=== PATIENT | female | born 1960 | race African-American/Black ===

== ENCOUNTER 2017-08-23 00:29 | Inpatient (IN) ==
[2017-08-23] MEDS ORDERED: CEFEPIME 2,000 MG in SODIUM CHLORIDE 0.9% 100 ML IV STA (01:01)
[2017-08-23] MEDS ORDERED: VANCOMYCIN INJ 750 MG in SODIUM CHLORIDE 0.9% 250 ML IV STA (01:01)
[2017-08-23] MEDS ORDERED: SODIUM CHLORIDE 0.9% 2,000 ML IV STA (01:01)
[2017-08-23] MEDS ORDERED: VANCOMYCIN INJ 1,000 MG in SODIUM CHLORIDE 0.9% 250 ML IV STA ×2 (01:08→01:09)
[2017-08-23] MEDS ORDERED: CEFEPIME 1,000 MG VIAL ONE (02:12)
[2017-08-23 02:14] LABS: Basophils # 0.2 10*3/uL (0.0-0.2); Basophils % 0.6 % (0.0-0.8); Eosinophils % 0.1 % (0.00-10.9); Hematocrit 28.5 VOL% (35.7-47.0); Immature Granulocytes % 3.8 %; Immature Granulocytes Absolute 1.07 #; Lymphocytes # 2.6 10*3/uL (1.4-4.0); Mean Corpuscular HGB Conc 31.6 GM/DL (32-36); Mean Corpuscular Hemoglobin 28 PG (27-34); Mean Corpuscular Volume 88.5 FL (87-102); Mean Platelet Volume 9.3 FL (9.6-12.0); Monocytes % 10.5 % (1.7-12.7); NRBC # 0.14 10*3/uL; Neutrophils # 21.5 10*3/uL (1.4-7.4); Red Blood Count 3.22 MC/CUMM (3.8-5.5); Red Cell Distribution Width 19.2 % (9.3-17.3); White Blood Count 28.3 T/CUMM (4-12)
[2017-08-23 02:19] LABS: Platelet Count 1023 T/CUMM (130-400)
[2017-08-23 02:24] LABS: Amorphous Crystals,Urine Occasional /HPF (Few); Apearance,Urine CLOUDY (Clear); Bilirubin,Urine Small mg/dL (Negative); Blood, Urine Large mg/dL (Negative); Glucose,Urine (UA) Negative (Negative); Hyaline Casts,Urine 3 /LPF (0-3); Ketones,Urine Negative (Negative); Mucus,Urine Occasional /LPF (Occasional); Nitrite,Urine Negative (Negative); Protein,Urine 100 MG/DL; RBC,Urine 14 /HPF (0-4); Squamous Epithelial Cell,Urine Occasional /HPF (0-10); Urine Color Amber (Yellow); Urine Specific Gravity 1.019 (1.001-1.035); Urine Urobilinogen < 2.0 EU/DL (0.2-1.0); WBC,Urine 14 /HPF (0-6)
[2017-08-23 02:29] LABS: Lactic Acid 1.3 MMOL/L (0.4-2.0)
[2017-08-23 02:30] LABS: Albumin 2.4 G/DL (3.4-5.0); Calcium 8.6 MG/DL (8.5-10.1); Osmolality,Calculated 290.7 MOS/KG (273-304); Potassium 5.9 MMOL/L (3.5-5.1); Total Protein 9.2 G/DL (6.4-8.3)
[2017-08-23 02:42] LABS: Anisocytosis 1+; Band Neutrophils 8 % (0-10); Eosinophils 2 % (0-10); Lymphocytes 4 % (20-55); Metamyelocytes 2 %; Segmented Neutrophils 77 % (50-85); Total Cells Counted 100
[2017-08-23 02:43] LABS: Target Cells Slight
[2017-08-23 02:44] LABS: Poikilocytosis 1+
[2017-08-23] MEDS ORDERED: SODIUM CHLORIDE 0.9% 1,000 ML IV STA (02:46)
[2017-08-23] MEDS ORDERED: ALBUTEROL 2.5 MG/3 ML NEB RESP TX PRN (05:26)
[2017-08-23] MEDS ORDERED: MORPHINE 4 MG/1 ML VIAL IV PRN (05:33)
[2017-08-23] MEDS ORDERED: ACETAMINOPHEN 325 MG TABLET PO PRN (05:33)
[2017-08-23] MEDS ORDERED: DIPHENOXYLATE/ATROPINE 2.5-0.025 MG TABLET PO PRN (05:42)
[2017-08-23] MEDS: PIPERACILLIN/TAZOBACTAM 3,375 MG in SODIUM CHLORIDE 0.9% 100 ML IV SCH ×2 (06:37→17:51)
[2017-08-23] MEDS: SODIUM CHLORIDE 0.9% 1,000 ML IV SCH ×3 (06:39→21:52)
[2017-08-23] MEDS: HEPARIN 5,000 UNIT/1 ML VIAL SUBCUT SCH ×3 (06:39→21:49)
[2017-08-23 06:53] LABS: INR 1.1; PT Patient Result 11.5 SECS
[2017-08-23] MEDS: ALBUTEROL/IPRATROPIUM 3 ML NEB RESP TX SCH ×3 (07:55→19:10)
[2017-08-23] MEDS: ONDANSETRON 4 MG/2 ML VIAL IV PRN (08:19)
[2017-08-23] MEDS ORDERED: metroNIDAZOLE 500 MG TABLET PO SCH (09:00)
[2017-08-23] MEDS: FLUoxetine 10 MG CAPSULE PO SCH (09:28)
[2017-08-23] MEDS: ASPIRIN EC 81 MG TABLET PO SCH (09:28)
[2017-08-23] MEDS: COLLAGENASE OINT 30 GM TUBE TOP SCH ×2 (21:48→22:32)
[2017-08-23] MEDS: MELATONIN 3 MG TABLET PO SCH (21:49)
[2017-08-24] MEDS: ALBUTEROL/IPRATROPIUM 3 ML NEB RESP TX SCH ×4 (00:10→19:31)
[2017-08-24] MEDS: PIPERACILLIN/TAZOBACTAM 3,375 MG in SODIUM CHLORIDE 0.9% 100 ML IV SCH (05:25)
[2017-08-24] MEDS: HEPARIN 5,000 UNIT/1 ML VIAL SUBCUT SCH ×3 (05:27→22:31)
[2017-08-24 07:27] LABS: Basophils # 0.2 10*3/uL (0.0-0.2); Basophils % 0.7 % (0.0-0.8); Eosinophils # 0.2 10*3/uL (0.0-0.87); Eosinophils % 0.6 % (0.00-10.9); Hematocrit 21.6 VOL% (35.7-47.0); Hemoglobin 6.7 GM/DL (12.0-16.0); Immature Granulocytes % 3.5 %; Immature Granulocytes Absolute 0.86 #; Lymphocytes # 2.8 10*3/uL (1.4-4.0); Lymphocytes % 11.4 % (21.3-54.2); Mean Corpuscular Hemoglobin 28 PG (27-34); Mean Platelet Volume 9.3 FL (9.6-12.0); Monocytes # 2.8 10*3/uL (0.11-0.8); Monocytes % 11.4 % (1.7-12.7); Neutrophils % 72.4 % (38.7-73.9); Platelet Count 821 T/CUMM (130-400); Red Cell Distribution Width 19.9 % (9.3-17.3); White Blood Count 24.8 T/CUMM (4-12)
[2017-08-24 07:53] LABS: Eosinophils 1 % (0-10); Giant Platelets Few; Hypochromasia 1+; Lymphocytes 8 % (20-55); Platelet Estimate Increased; Segmented Neutrophils 71 % (50-85); Total Cells Counted 100
[2017-08-24 08:08] LABS: Albumin 1.7 G/DL (3.4-5.0); Bilirubin,Total 0.9 MG/DL (0.2-1.0); Calcium 8.5 MG/DL (8.5-10.1); Osmolality,Calculated 303.7 MOS/KG (273-304); Potassium 4.9 MMOL/L (3.5-5.1); Total Protein 7.4 G/DL (6.4-8.3)
[2017-08-24] MEDS: FLUoxetine 10 MG CAPSULE PO SCH (10:36)
[2017-08-24] MEDS: ASPIRIN EC 81 MG TABLET PO SCH (10:37)
[2017-08-24] MEDS: SODIUM CHLORIDE 0.9% 1,000 ML IV SCH (12:53)
[2017-08-24] MEDS ORDERED: SODIUM CHLORIDE 0.9% 1,000 ML IV PRN (13:17)
[2017-08-24] MEDS: SODIUM HYPOCHLORITE 0.25% IRRIG 473 ML BOTTLE TOP SCH (17:58)
[2017-08-24] MEDS: COLLAGENASE OINT 30 GM TUBE TOP SCH ×2 (17:58→20:35)
[2017-08-24] MEDS: VANCOMYCIN INJ 750 MG in SODIUM CHLORIDE 0.9% 250 ML IV SCH (20:43)
[2017-08-24] MEDS: MELATONIN 3 MG TABLET PO SCH (20:44)
[2017-08-25] MEDS: ALBUTEROL/IPRATROPIUM 3 ML NEB RESP TX SCH ×4 (00:18→19:25)
[2017-08-25] MEDS: SODIUM BICARB INJ 150 MEQ in STERILE WATER INJ 850 ML IV SCH ×3 (01:51→17:17)
[2017-08-25] MEDS: ONDANSETRON 4 MG/2 ML VIAL IV PRN ×4 (02:15→14:50)
[2017-08-25] MEDS: PIPERACILLIN/TAZOBACTAM 3,375 MG in SODIUM CHLORIDE 0.9% 100 ML IV SCH ×2 (03:21→19:30)
[2017-08-25 05:40] LABS: Basophils # 0.2 10*3/uL (0.0-0.2); Basophils % 0.7 % (0.0-0.8); Eosinophils # 0.2 10*3/uL (0.0-0.87); Eosinophils % 0.9 % (0.00-10.9); Hematocrit 29.2 VOL% (35.7-47.0); Hemoglobin 9.6 GM/DL (12.0-16.0); Immature Granulocytes % 2.7 %; Immature Granulocytes Absolute 0.65 #; Lymphocytes # 2.2 10*3/uL (1.4-4.0); Lymphocytes % 9.2 % (21.3-54.2); Mean Corpuscular HGB Conc 32.9 GM/DL (32-36); Mean Corpuscular Hemoglobin 29 PG (27-34); Mean Corpuscular Volume 88.8 FL (87-102); Mean Platelet Volume 9.3 FL (9.6-12.0); Monocytes # 2.5 10*3/uL (0.11-0.8); Monocytes % 10.4 % (1.7-12.7); NRBC # 0.07 10*3/uL; Neutrophils # 18.1 10*3/uL (1.4-7.4); Neutrophils % 76.1 % (38.7-73.9); Platelet Count 724 T/CUMM (130-400); Red Blood Count 3.29 MC/CUMM (3.8-5.5); Red Cell Distribution Width 17.3 % (9.3-17.3); White Blood Count 23.8 T/CUMM (4-12)
[2017-08-25] MEDS: HEPARIN 5,000 UNIT/1 ML VIAL SUBCUT SCH ×3 (05:41→21:33)
[2017-08-25 06:04] LABS: Calcium 8.3 MG/DL (8.5-10.1); Osmolality,Calculated 300.4 MOS/KG (273-304); Potassium 4.6 MMOL/L (3.5-5.1)
[2017-08-25 06:26] LABS: Band Neutrophils 1 % (0-10); Hypochromasia Slight; Lymphocytes 8 % (20-55); Nucleated Red Blood Cells 1 (0-5); Platelet Estimate Increased; Segmented Neutrophils 82 % (50-85); Total Cells Counted 100
[2017-08-25] MEDS ORDERED: GLUCAGON 1 MG VIAL IM PRN (14:30)
[2017-08-25] MEDS ORDERED: DEXTROSE 50% 25 GM/50 ML VIAL IV PRN (14:30)
[2017-08-25] MEDS: COLLAGENASE OINT 30 GM TUBE TOP SCH ×2 (14:30→21:24)
[2017-08-25] MEDS: SODIUM HYPOCHLORITE 0.25% IRRIG 473 ML BOTTLE TOP SCH (14:30)
[2017-08-25] MEDS: FLUoxetine 10 MG CAPSULE PO SCH (14:53)
[2017-08-25] MEDS: ASPIRIN EC 81 MG TABLET PO SCH (14:53)
[2017-08-25] MEDS ORDERED: AMINO ACIDS/DEXT/LYTES 4.25-5% 2,000 ML IV SCH (17:00)
[2017-08-25] MEDS: MULTIVITAMIN INJ 10 ML, TRACE ELEMENTS (5) 1 ML in AMINO ACIDS/DEXT/LYTES 4.25-5% 2,000 ML IV SCH (17:19)
[2017-08-25] MEDS: FAT EMULSION 20% 250 ML IV SCH (17:20)
[2017-08-25] MEDS: MELATONIN 3 MG TABLET PO SCH (21:24)
[2017-08-26] MEDS: ALBUTEROL/IPRATROPIUM 3 ML NEB RESP TX SCH ×4 (00:28→19:43)
[2017-08-26 05:13] LABS: Basophils # 0.2 10*3/uL (0.0-0.2); Basophils % 0.6 % (0.0-0.8); Eosinophils # 0.5 10*3/uL (0.0-0.87); Hematocrit 24.4 VOL% (35.7-47.0); Immature Granulocytes % 2.4 %; Immature Granulocytes Absolute 0.56 #; Lymphocytes # 2.3 10*3/uL (1.4-4.0); Lymphocytes % 9.7 % (21.3-54.2); Mean Corpuscular HGB Conc 32.8 GM/DL (32-36); Mean Corpuscular Hemoglobin 30 PG (27-34); Mean Platelet Volume 9.6 FL (9.6-12.0); Monocytes # 1.9 10*3/uL (0.11-0.8); Monocytes % 8.3 % (1.7-12.7); NRBC # 0.07 10*3/uL; Neutrophils # 17.9 10*3/uL (1.4-7.4); Platelet Count 627 T/CUMM (130-400); Red Blood Count 2.68 MC/CUMM (3.8-5.5); Red Cell Distribution Width 17.8 % (9.3-17.3); White Blood Count 23.3 T/CUMM (4-12)
[2017-08-26] MEDS: PIPERACILLIN/TAZOBACTAM 3,375 MG in SODIUM CHLORIDE 0.9% 100 ML IV SCH ×2 (05:17→17:15)
[2017-08-26] MEDS: HEPARIN 5,000 UNIT/1 ML VIAL SUBCUT SCH ×3 (05:17→22:40)
[2017-08-26 05:32] LABS: Osmolality,Calculated 299.8 MOS/KG (273-304)
[2017-08-26 05:49] LABS: Potassium 6.6 MMOL/L (3.5-5.1)
[2017-08-26 06:06] LABS: Prealbumin 23.1 MG/DL (20-40)
[2017-08-26] MEDS: SODIUM BICARB INJ 150 MEQ in STERILE WATER INJ 850 ML IV SCH ×2 (06:42→06:43)
[2017-08-26 06:57] LABS: Eosinophils 1 % (0-10); Hypochromasia 2+; Lymphocytes 8 % (20-55); Microcytosis 2+; Nucleated Red Blood Cells 1 (0-5); Platelet Estimate Increased; Segmented Neutrophils 87 % (50-85); Total Cells Counted 100
[2017-08-26] MEDS: SODIUM HYPOCHLORITE 0.25% IRRIG 473 ML BOTTLE TOP SCH (09:32)
[2017-08-26] MEDS: ASPIRIN EC 81 MG TABLET PO SCH (09:32)
[2017-08-26] MEDS: FLUoxetine 10 MG CAPSULE PO SCH (09:32)
[2017-08-26] MEDS: COLLAGENASE OINT 30 GM TUBE TOP SCH ×2 (09:32→22:01)
[2017-08-26] MEDS: MULTIVITAMIN INJ 10 ML, TRACE ELEMENTS (5) 1 ML in AMINO ACIDS/DEXT/LYTES 4.25-5% 2,000 ML IV SCH (14:33)
[2017-08-26] MEDS: FAT EMULSION 20% 250 ML IV SCH (16:03)
[2017-08-26] MEDS: INSULIN LISPRO 100 UNIT/ML SUBCUT SCH (17:16)
[2017-08-26] MEDS: ONDANSETRON 4 MG/2 ML VIAL IV PRN (20:23)
[2017-08-26] MEDS: PROMETHAZINE 25 MG/1 ML VIAL IM PRN (21:39)
[2017-08-26] MEDS: MELATONIN 3 MG TABLET PO SCH (22:37)
[2017-08-26] MEDS: VANCOMYCIN INJ 750 MG in SODIUM CHLORIDE 0.9% 250 ML IV SCH (22:53)
[2017-08-27] MEDS: ALBUTEROL/IPRATROPIUM 3 ML NEB RESP TX SCH ×4 (02:30→19:39)
[2017-08-27] MEDS: PIPERACILLIN/TAZOBACTAM 3,375 MG in SODIUM CHLORIDE 0.9% 100 ML IV SCH ×2 (03:18→17:26)
[2017-08-27 04:42] LABS: Basophils # 0.1 10*3/uL (0.0-0.2); Basophils % 0.4 % (0.0-0.8); Eosinophils # 0.6 10*3/uL (0.0-0.87); Eosinophils % 2.3 % (0.00-10.9); Hemoglobin 8.4 GM/DL (12.0-16.0); Immature Granulocytes % 2.9 %; Immature Granulocytes Absolute 0.76 #; Lymphocytes # 2.7 10*3/uL (1.4-4.0); Lymphocytes % 10.3 % (21.3-54.2); Mean Corpuscular HGB Conc 32.3 GM/DL (32-36); Mean Corpuscular Hemoglobin 29 PG (27-34); Mean Corpuscular Volume 89.3 FL (87-102); Mean Platelet Volume 9.2 FL (9.6-12.0); Monocytes # 2.1 10*3/uL (0.11-0.8); Monocytes % 7.9 % (1.7-12.7); NRBC # 0.07 10*3/uL; Neutrophils # 19.8 10*3/uL (1.4-7.4); Neutrophils % 76.2 % (38.7-73.9); Platelet Count 675 T/CUMM (130-400); Red Blood Count 2.91 MC/CUMM (3.8-5.5); Red Cell Distribution Width 17.2 % (9.3-17.3)
[2017-08-27 05:10] LABS: Eosinophils 1 % (0-10); Giant Platelets Few; Hypochromasia 1+; Lymphocytes 4 % (20-55); Microcytosis 1+; Ovalocytes Slight; Platelet Estimate Increased; Segmented Neutrophils 81 % (50-85); Total Cells Counted 100
[2017-08-27] MEDS: HEPARIN 5,000 UNIT/1 ML VIAL SUBCUT SCH ×3 (05:15→21:07)
[2017-08-27 05:16] LABS: Calcium 8.8 MG/DL (8.5-10.1); Potassium 4.8 MMOL/L (3.5-5.1)
[2017-08-27] MEDS: INSULIN LISPRO 100 UNIT/ML SUBCUT SCH ×2 (08:46→16:54)
[2017-08-27] MEDS: ASPIRIN EC 81 MG TABLET PO SCH (09:33)
[2017-08-27] MEDS: SODIUM HYPOCHLORITE 0.25% IRRIG 473 ML BOTTLE TOP SCH (09:33)
[2017-08-27] MEDS: FLUoxetine 10 MG CAPSULE PO SCH (09:33)
[2017-08-27] MEDS: COLLAGENASE OINT 30 GM TUBE TOP SCH ×2 (09:34→21:54)
[2017-08-27] MEDS: MULTIVITAMIN INJ 10 ML, TRACE ELEMENTS (5) 1 ML in AMINO ACIDS/DEXT/LYTES 4.25-5% 2,000 ML IV SCH (11:23)
[2017-08-27] MEDS: ONDANSETRON 4 MG/2 ML VIAL IV PRN (14:08)
[2017-08-27] MEDS: FAT EMULSION 20% 250 ML IV SCH (14:08)
[2017-08-27] MEDS: MELATONIN 3 MG TABLET PO SCH (21:07)
[2017-08-28] MEDS: ALBUTEROL/IPRATROPIUM 3 ML NEB RESP TX SCH ×4 (00:54→19:12)
[2017-08-28 04:58] LABS: Basophils # 0.1 10*3/uL (0.0-0.2); Basophils % 0.4 % (0.0-0.8); Eosinophils # 0.6 10*3/uL (0.0-0.87); Eosinophils % 2.8 % (0.00-10.9); Hematocrit 24.9 VOL% (35.7-47.0); Hemoglobin 8.3 GM/DL (12.0-16.0); Immature Granulocytes % 2.5 %; Immature Granulocytes Absolute 0.56 #; Lymphocytes # 2.5 10*3/uL (1.4-4.0); Lymphocytes % 11.1 % (21.3-54.2); Mean Corpuscular HGB Conc 33.3 GM/DL (32-36); Mean Corpuscular Hemoglobin 29 PG (27-34); Mean Corpuscular Volume 87.7 FL (87-102); Mean Platelet Volume 9.2 FL (9.6-12.0); Monocytes # 1.8 10*3/uL (0.11-0.8); NRBC # 0.02 10*3/uL; Neutrophils # 17.1 10*3/uL (1.4-7.4); Neutrophils % 75.2 % (38.7-73.9); Platelet Count 641 T/CUMM (130-400); Red Blood Count 2.84 MC/CUMM (3.8-5.5); Red Cell Distribution Width 17.3 % (9.3-17.3); White Blood Count 22.7 T/CUMM (4-12)
[2017-08-28] MEDS: HEPARIN 5,000 UNIT/1 ML VIAL SUBCUT SCH ×3 (05:00→21:12)
[2017-08-28] MEDS: PIPERACILLIN/TAZOBACTAM 3,375 MG in SODIUM CHLORIDE 0.9% 100 ML IV SCH ×3 (05:00→23:05)
[2017-08-28 05:36] LABS: Calcium 8.6 MG/DL (8.5-10.1); Osmolality,Calculated 289.1 MOS/KG (273-304)
[2017-08-28 05:51] LABS: Eosinophils 2 % (0-10); Lymphocytes 10 % (20-55); Platelet Estimate Increased; Segmented Neutrophils 79 % (50-85); Total Cells Counted 100
[2017-08-28 05:52] LABS: Hypochromasia 1+; Microcytosis Slight
[2017-08-28] MEDS: MULTIVITAMIN INJ 10 ML, TRACE ELEMENTS (5) 1 ML in AMINO ACIDS/DEXT/LYTES 4.25-5% 2,000 ML IV SCH (08:23)
[2017-08-28] MEDS: INSULIN LISPRO 100 UNIT/ML SUBCUT SCH ×2 (08:57→17:06)
[2017-08-28] MEDS: FLUoxetine 10 MG CAPSULE PO SCH (08:59)
[2017-08-28] MEDS: ASPIRIN EC 81 MG TABLET PO SCH (09:00)
[2017-08-28] MEDS: SODIUM HYPOCHLORITE 0.25% IRRIG 473 ML BOTTLE TOP SCH (09:00)
[2017-08-28] MEDS: COLLAGENASE OINT 30 GM TUBE TOP SCH ×2 (09:00→21:12)
[2017-08-28] MEDS: FAT EMULSION 20% 250 ML IV SCH (14:01)
[2017-08-28] MEDS: ONDANSETRON 4 MG/2 ML VIAL IV PRN (17:44)
[2017-08-28] MEDS: VANCOMYCIN INJ 750 MG in SODIUM CHLORIDE 0.9% 250 ML IV SCH (21:03)
[2017-08-28] MEDS: MELATONIN 3 MG TABLET PO SCH (21:12)
[2017-08-29] MEDS: ALBUTEROL/IPRATROPIUM 3 ML NEB RESP TX SCH ×2 (00:57→07:00)
[2017-08-29] MEDS: ONDANSETRON 4 MG/2 ML VIAL IV PRN ×2 (03:00→14:39)
[2017-08-29] MEDS: MULTIVITAMIN INJ 10 ML, TRACE ELEMENTS (5) 1 ML in AMINO ACIDS/DEXT/LYTES 4.25-5% 2,000 ML IV SCH ×2 (03:20→23:41)
[2017-08-29] MEDS: HEPARIN 5,000 UNIT/1 ML VIAL SUBCUT SCH ×3 (05:55→22:34)
[2017-08-29] MEDS: PIPERACILLIN/TAZOBACTAM 3,375 MG in SODIUM CHLORIDE 0.9% 100 ML IV SCH ×2 (05:55→14:40)
[2017-08-29 06:01] LABS: Osmolality,Calculated 284.2 MOS/KG (273-304); Prealbumin 33.5 MG/DL (20-40)
[2017-08-29] MEDS: FLUoxetine 10 MG CAPSULE PO SCH (10:02)
[2017-08-29] MEDS: INSULIN LISPRO 100 UNIT/ML SUBCUT SCH ×2 (10:03→18:49)
[2017-08-29] MEDS: ASPIRIN EC 81 MG TABLET PO SCH (10:03)
[2017-08-29] MEDS: FAT EMULSION 20% 250 ML IV SCH (14:40)
[2017-08-29] MEDS: SODIUM HYPOCHLORITE 0.25% IRRIG 473 ML BOTTLE TOP SCH (14:50)
[2017-08-29] MEDS: COLLAGENASE OINT 30 GM TUBE TOP SCH ×2 (14:50→20:33)
[2017-08-29] MEDS: MELATONIN 3 MG TABLET PO SCH (21:42)
[2017-08-30] MEDS: ONDANSETRON 4 MG/2 ML VIAL IV PRN ×2 (00:03→21:36)
[2017-08-30] MEDS: PIPERACILLIN/TAZOBACTAM 3,375 MG in SODIUM CHLORIDE 0.9% 100 ML IV SCH ×2 (00:10→06:10)
[2017-08-30] MEDS: HEPARIN 5,000 UNIT/1 ML VIAL SUBCUT SCH ×3 (06:10→21:36)
[2017-08-30] MEDS ORDERED: MIDAZOLAM 2 MG/2 ML VIAL ONE (09:36)
[2017-08-30] MEDS ORDERED: PROPOFOL 200 MG/20 ML VIAL IV ONE (09:36)
[2017-08-30] MEDS ORDERED: fentaNYL 100 MCG/2 ML VIAL ONE (09:36)
[2017-08-30] MEDS ORDERED: GLYCOPYRROLATE 0.4 MG/2 ML VIAL ONE (09:36)
[2017-08-30] MEDS ORDERED: ONDANSETRON 4 MG/2 ML VIAL ONE (09:36)
[2017-08-30] MEDS ORDERED: SEVOFLURANE 1 UNIT/15 MINUTE INH ONE (09:36)
[2017-08-30] MEDS ORDERED: NEOSTIGMINE 10 MG/10 ML VIAL ONE (09:37)
[2017-08-30] MEDS ORDERED: ROCURONIUM 100 MG/10 ML VIAL IV ONE (09:37)
[2017-08-30] MEDS ORDERED: PHENYLEPHRINE 1 MG/10 ML SYRINGE IV ONE (09:37)
[2017-08-30] MEDS: INSULIN LISPRO 100 UNIT/ML SUBCUT SCH ×2 (09:39→18:37)
[2017-08-30] MEDS: FLUoxetine 10 MG CAPSULE PO SCH (09:40)
[2017-08-30] MEDS: SODIUM HYPOCHLORITE 0.25% IRRIG 473 ML BOTTLE TOP SCH (09:40)
[2017-08-30] MEDS: ASPIRIN EC 81 MG TABLET PO SCH (09:40)
[2017-08-30] MEDS: COLLAGENASE OINT 30 GM TUBE TOP SCH ×2 (09:40→21:34)
[2017-08-30] MEDS: FAT EMULSION 20% 250 ML IV SCH (14:55)
[2017-08-30] MEDS: MULTIVITAMIN INJ 10 ML, TRACE ELEMENTS (5) 1 ML in AMINO ACIDS/DEXT/LYTES 4.25-5% 2,000 ML IV SCH (18:37)
[2017-08-30] MEDS: LEVOFLOXACIN 750 MG TABLET PO SCH (18:38)
[2017-08-30] MEDS ORDERED: VANCOMYCIN INJ 750 MG in SODIUM CHLORIDE 0.9% 250 ML IV SCH (21:00)
[2017-08-30] MEDS: MELATONIN 3 MG TABLET PO SCH (21:36)
[2017-08-31] MEDS: HEPARIN 5,000 UNIT/1 ML VIAL SUBCUT SCH ×3 (06:10→22:09)
[2017-08-31] MEDS: PROMETHAZINE 25 MG/1 ML VIAL IM PRN (06:17)
[2017-08-31] MEDS: INSULIN LISPRO 100 UNIT/ML SUBCUT SCH ×2 (08:58→16:04)
[2017-08-31] MEDS: ASPIRIN EC 81 MG TABLET PO SCH (09:59)
[2017-08-31] MEDS: FLUoxetine 10 MG CAPSULE PO SCH (09:59)
[2017-08-31] MEDS: ATENOLOL/CHLORTHALIDONE 50-25 MG TABLET PO SCH (13:58)
[2017-08-31] MEDS: ONDANSETRON 4 MG/2 ML VIAL IV PRN (13:59)
[2017-08-31] MEDS: FAT EMULSION 20% 250 ML IV SCH (14:12)
[2017-08-31] MEDS: MULTIVITAMIN INJ 10 ML, TRACE ELEMENTS (5) 1 ML in AMINO ACIDS/DEXT/LYTES 4.25-5% 2,000 ML IV SCH (14:13)
[2017-08-31] MEDS: LEVOFLOXACIN 750 MG TABLET PO SCH (16:11)
[2017-08-31] MEDS: COLLAGENASE OINT 30 GM TUBE TOP SCH ×2 (18:01→20:10)
[2017-08-31] MEDS: SODIUM HYPOCHLORITE 0.25% IRRIG 473 ML BOTTLE TOP SCH (18:01)
[2017-08-31] MEDS: MELATONIN 3 MG TABLET PO SCH (20:09)
[2017-09-01] MEDS: HEPARIN 5,000 UNIT/1 ML VIAL SUBCUT SCH ×3 (06:34→21:57)
[2017-09-01 06:41] LABS: Calcium 9.2 MG/DL (8.5-10.1); Osmolality,Calculated 276.4 MOS/KG (273-304); Potassium 5.5 MMOL/L (3.5-5.1)
[2017-09-01] MEDS: INSULIN LISPRO 100 UNIT/ML SUBCUT SCH ×2 (08:28→17:10)
[2017-09-01] MEDS: ATENOLOL/CHLORTHALIDONE 50-25 MG TABLET PO SCH (09:45)
[2017-09-01] MEDS: FLUoxetine 10 MG CAPSULE PO SCH (09:45)
[2017-09-01] MEDS: ASPIRIN EC 81 MG TABLET PO SCH (09:45)
[2017-09-01] MEDS ORDERED: AMINO ACIDS IV SCH ×2 (11:00→17:00)
[2017-09-01] MEDS ORDERED: MULTIVITAMIN IV SCH ×2 (11:00→17:00)
[2017-09-01] MEDS ORDERED: TRACE ELEMENTS IV SCH ×2 (11:00→17:00)
[2017-09-01] MEDS ORDERED: [UNRECOGNIZED DRUG - OTHER] IV SCH ×2 (11:00→17:00)
[2017-09-01] MEDS: MULTIVITAMIN INJ 10 ML, TRACE ELEMENTS (5) 1 ML in AMINO ACIDS/DEXT/LYTES 4.25-5% 2,000 ML IV SCH (11:10)
[2017-09-01] MEDS: COLLAGENASE OINT 30 GM TUBE TOP SCH ×2 (12:10→21:34)
[2017-09-01] MEDS: SODIUM HYPOCHLORITE 0.25% IRRIG 473 ML BOTTLE TOP SCH (12:10)
[2017-09-01] MEDS: PROMETHAZINE 25 MG TABLET PO PRN (16:19)
[2017-09-01] MEDS: amLODIPine 10 MG TABLET PO SCH (16:20)
[2017-09-01] MEDS: LEVOFLOXACIN 750 MG TABLET PO SCH (16:20)
[2017-09-01] MEDS: MELATONIN 3 MG TABLET PO SCH (21:55)
[2017-09-02] MEDS: HEPARIN 5,000 UNIT/1 ML VIAL SUBCUT SCH ×3 (06:38→21:16)
[2017-09-02 07:06] LABS: Calcium 9.3 MG/DL (8.5-10.1); Osmolality,Calculated 275.5 MOS/KG (273-304); Potassium 4.9 MMOL/L (3.5-5.1)
[2017-09-02] MEDS: INSULIN LISPRO 100 UNIT/ML SUBCUT SCH ×2 (10:32→18:03)
[2017-09-02] MEDS: ATENOLOL/CHLORTHALIDONE 50-25 MG TABLET PO SCH (11:08)
[2017-09-02] MEDS: FLUoxetine 10 MG CAPSULE PO SCH (11:08)
[2017-09-02] MEDS: ASPIRIN EC 81 MG TABLET PO SCH (11:09)
[2017-09-02] MEDS: amLODIPine 10 MG TABLET PO SCH (11:10)
[2017-09-02] MEDS: ONDANSETRON 4 MG/2 ML VIAL IV PRN ×2 (12:32→21:13)
[2017-09-02] MEDS: SODIUM HYPOCHLORITE 0.25% IRRIG 473 ML BOTTLE TOP SCH (14:15)
[2017-09-02] MEDS: COLLAGENASE OINT 30 GM TUBE TOP SCH ×2 (14:15→21:16)
[2017-09-02] MEDS: SODIUM CHLORIDE 0.9% 1,000 ML IV SCH (18:02)
[2017-09-02] MEDS: MELATONIN 3 MG TABLET PO SCH (21:13)
[2017-09-03 01:07] LABS: Apearance,Urine CLOUDY (Clear); Bilirubin,Urine Negative (Negative); Blood, Urine Large mg/dL (Negative); Glucose,Urine (UA) Negative (Negative); Granular Casts,Urine 45 /LPF (0-1); Ketones,Urine Negative (Negative); Nitrite,Urine Negative (Negative); Protein,Urine 100 MG/DL; RBC,Urine 733 /HPF (0-4); Squamous Epithelial Cell,Urine Occasional /HPF (0-10); Urine Color Amber (Yellow); Urine Specific Gravity 1.012 (1.001-1.035); Urine Urobilinogen < 2.0 EU/DL (0.2-1.0); WBC,Urine 260 /HPF (0-6)
[2017-09-03] MEDS: SODIUM CHLORIDE 0.9% 1,000 ML IV SCH ×4 (04:52→20:15)
[2017-09-03] MEDS: HEPARIN 5,000 UNIT/1 ML VIAL SUBCUT SCH ×3 (06:18→21:53)
[2017-09-03 07:16] LABS: Basophils # 0.2 10*3/uL (0.0-0.2); Eosinophils # 0.3 10*3/uL (0.0-0.87); Eosinophils % 1.6 % (0.00-10.9); Hematocrit 26.1 VOL% (35.7-47.0); Hemoglobin 8.2 GM/DL (12.0-16.0); Immature Granulocytes % 1.1 %; Immature Granulocytes Absolute 0.17 #; Lymphocytes % 12.9 % (21.3-54.2); Mean Corpuscular HGB Conc 31.4 GM/DL (32-36); Mean Corpuscular Hemoglobin 29 PG (27-34); Mean Corpuscular Volume 92.6 FL (87-102); Mean Platelet Volume 8.9 FL (9.6-12.0); Monocytes # 1.2 10*3/uL (0.11-0.8); Monocytes % 7.7 % (1.7-12.7); NRBC # 0.02 10*3/uL; Neutrophils % 75.7 % (38.7-73.9); Platelet Count 696 T/CUMM (130-400); Red Blood Count 2.82 MC/CUMM (3.8-5.5); Red Cell Distribution Width 17.1 % (9.3-17.3); White Blood Count 15.8 T/CUMM (4-12)
[2017-09-03 07:31] LABS: Calcium 9.1 MG/DL (8.5-10.1); Osmolality,Calculated 281.5 MOS/KG (273-304); Potassium 4.9 MMOL/L (3.5-5.1)
[2017-09-03] MEDS: INSULIN LISPRO 100 UNIT/ML SUBCUT SCH ×2 (08:55→17:17)
[2017-09-03] MEDS ORDERED: LEVOFLOXACIN 750 MG TABLET PO SCH (09:00)
[2017-09-03] MEDS: ATENOLOL/CHLORTHALIDONE 50-25 MG TABLET PO SCH (09:50)
[2017-09-03] MEDS: FLUoxetine 10 MG CAPSULE PO SCH (09:50)
[2017-09-03] MEDS: amLODIPine 10 MG TABLET PO SCH (09:50)
[2017-09-03] MEDS: ASPIRIN EC 81 MG TABLET PO SCH (09:50)
[2017-09-03] MEDS: SODIUM HYPOCHLORITE 0.25% IRRIG 473 ML BOTTLE TOP SCH (12:00)
[2017-09-03] MEDS: COLLAGENASE OINT 30 GM TUBE TOP SCH ×2 (12:00→22:13)
[2017-09-03] MEDS: MELATONIN 3 MG TABLET PO SCH (21:53)
[2017-09-04] MEDS: HEPARIN 5,000 UNIT/1 ML VIAL SUBCUT SCH ×3 (06:30→21:25)
[2017-09-04] MEDS: SODIUM CHLORIDE 0.9% 1,000 ML IV SCH ×3 (06:34→22:00)
[2017-09-04] MEDS: ASPIRIN EC 81 MG TABLET PO SCH (09:29)
[2017-09-04] MEDS: FLUoxetine 10 MG CAPSULE PO SCH (09:30)
[2017-09-04] MEDS: amLODIPine 10 MG TABLET PO SCH (09:30)
[2017-09-04] MEDS: ATENOLOL/CHLORTHALIDONE 50-25 MG TABLET PO SCH (09:30)
[2017-09-04] MEDS: INSULIN LISPRO 100 UNIT/ML SUBCUT SCH ×2 (09:34→16:23)
[2017-09-04] MEDS: SODIUM HYPOCHLORITE 0.25% IRRIG 473 ML BOTTLE TOP SCH (17:20)
[2017-09-04] MEDS: COLLAGENASE OINT 30 GM TUBE TOP SCH ×2 (17:20→21:26)
[2017-09-04] MEDS: MELATONIN 3 MG TABLET PO SCH (21:22)
[2017-09-04] MEDS: ONDANSETRON 4 MG/2 ML VIAL IV PRN (21:23)
[2017-09-05] MEDS: HEPARIN 5,000 UNIT/1 ML VIAL SUBCUT SCH ×3 (05:20→22:01)
[2017-09-05] MEDS: INSULIN LISPRO 100 UNIT/ML SUBCUT SCH ×2 (08:34→16:31)
[2017-09-05] MEDS: ATENOLOL/CHLORTHALIDONE 50-25 MG TABLET PO SCH (09:44)
[2017-09-05] MEDS: FLUoxetine 10 MG CAPSULE PO SCH (09:44)
[2017-09-05] MEDS: amLODIPine 10 MG TABLET PO SCH (09:44)
[2017-09-05] MEDS: ASPIRIN EC 81 MG TABLET PO SCH (09:44)
[2017-09-05] MEDS: SODIUM HYPOCHLORITE 0.25% IRRIG 473 ML BOTTLE TOP SCH (11:07)
[2017-09-05] MEDS: COLLAGENASE OINT 30 GM TUBE TOP SCH ×2 (11:39→22:01)
[2017-09-05] MEDS: SODIUM CHLORIDE 0.9% 1,000 ML IV SCH (11:40)
[2017-09-05] MEDS: FLUCONAZOLE INJ 200 MG in PREMIX 1 EACH IV SCH (13:13)
[2017-09-05] MEDS: MELATONIN 3 MG TABLET PO SCH (22:00)
[2017-09-06] MEDS: SODIUM CHLORIDE 0.9% 1,000 ML IV SCH ×2 (04:50→15:30)
[2017-09-06 05:25] LABS: Basophils # 0.1 10*3/uL (0.0-0.2); Basophils % 1.2 % (0.0-0.8); Eosinophils # 0.4 10*3/uL (0.0-0.87); Eosinophils % 3.8 % (0.00-10.9); Hematocrit 23.4 VOL% (35.7-47.0); Hemoglobin 7.3 GM/DL (12.0-16.0); Immature Granulocytes % 0.5 %; Immature Granulocytes Absolute 0.06 #; Lymphocytes # 2.1 10*3/uL (1.4-4.0); Lymphocytes % 17.7 % (21.3-54.2); Mean Corpuscular HGB Conc 31.2 GM/DL (32-36); Mean Corpuscular Hemoglobin 29 PG (27-34); Mean Platelet Volume 8.6 FL (9.6-12.0); Monocytes # 1.1 10*3/uL (0.11-0.8); Monocytes % 9.1 % (1.7-12.7); Neutrophils # 7.9 10*3/uL (1.4-7.4); Neutrophils % 67.7 % (38.7-73.9); Platelet Count 596 T/CUMM (130-400); Red Blood Count 2.49 MC/CUMM (3.8-5.5); White Blood Count 11.6 T/CUMM (4-12)
[2017-09-06 05:53] LABS: Albumin 1.9 G/DL (3.4-5.0); Bilirubin,Total 0.4 MG/DL (0.2-1.0); Calcium 8.7 MG/DL (8.5-10.1); Osmolality,Calculated 284.5 MOS/KG (273-304); Total Protein 7.6 G/DL (6.4-8.3)
[2017-09-06] MEDS: HEPARIN 5,000 UNIT/1 ML VIAL SUBCUT SCH ×2 (06:08→15:30)
[2017-09-06] MEDS: INSULIN LISPRO 100 UNIT/ML SUBCUT SCH ×2 (07:54→16:59)
[2017-09-06] MEDS: amLODIPine 10 MG TABLET PO SCH (08:54)
[2017-09-06] MEDS: ATENOLOL/CHLORTHALIDONE 50-25 MG TABLET PO SCH (08:54)
[2017-09-06] MEDS: FLUoxetine 10 MG CAPSULE PO SCH (08:54)
[2017-09-06] MEDS: ASPIRIN EC 81 MG TABLET PO SCH (08:54)
[2017-09-06] MEDS: FLUCONAZOLE INJ 200 MG in PREMIX 1 EACH IV SCH (15:30)
[2017-09-06] MEDS ORDERED: LORazepam 2 MG/1 ML VIAL IV PRN (16:34)
[2017-09-06] MEDS ORDERED: SCOPOLAMINE 1.5 MG PATCH TRANSDERM SCH (17:00)
[2017-09-06] MEDS: METOCLOPRAMIDE 10 MG/2 ML VIAL IV SCH (17:26)
[2017-09-06] MEDS: SODIUM HYPOCHLORITE 0.25% IRRIG 473 ML BOTTLE TOP SCH (18:20)
[2017-09-06] MEDS: COLLAGENASE OINT 30 GM TUBE TOP SCH (19:34)
[2017-09-06] MEDS ORDERED: ENOXAPARIN 40 MG/0.4 ML SYRINGE SUBCUT SCH (21:00)
[2017-09-07] MEDS: METOCLOPRAMIDE 10 MG/2 ML VIAL IV SCH ×3 (01:46→11:20)
[2017-09-07] MEDS: COLLAGENASE OINT 30 GM TUBE TOP SCH ×2 (05:00→10:30)
[2017-09-07] MEDS: INSULIN LISPRO 100 UNIT/ML SUBCUT SCH (08:42)
[2017-09-07] MEDS ORDERED: ATENOLOL 50 MG TABLET PO SCH (09:00)
[2017-09-07] MEDS ORDERED: SERTRALINE 25 MG TABLET PO SCH (09:00)
[2017-09-07] MEDS ORDERED: TUBERCULIN SKIN TEST 0.1 ML SYRINGE INTRADERM ONE (09:21)
[2017-09-07 09:40] LABS: Hematocrit 25.2 VOL% (35.7-47.0); Hemoglobin 8.2 GM/DL (12.0-16.0)
[2017-09-07] MEDS: ASPIRIN EC 81 MG TABLET PO SCH (10:22)
[2017-09-07] MEDS: amLODIPine 10 MG TABLET PO SCH (10:22)
[2017-09-07] MEDS: SODIUM HYPOCHLORITE 0.25% IRRIG 473 ML BOTTLE TOP SCH (10:30)
[2017-09-07 11:03] VITALS: BP 124/67
[2017-09-07] MEDS: PROMETHAZINE 25 MG TABLET PO PRN (13:10)
[2017-09-07] MEDS: FLUCONAZOLE INJ 200 MG in PREMIX 1 EACH IV SCH (13:14)
== END 2017-09-07 16:00 | DRG 853 ==
LOC: EDUNIT# → EDBD → N.ED 00:29 → SUATTDRO 04:46 → N.EDINP 04:46 → N.CC 10:21 → N.3E 12:02
PROVIDERS: ADMIT Internal Medicine; ATTEND Internal Medicine

== ENCOUNTER 2017-09-10 05:45 | Inpatient (IN) ==
[2017-09-10] MEDS ORDERED: SODIUM CHLORIDE 0.9% 1,000 ML IV STA (06:22)
[2017-09-10] MEDS ORDERED: ONDANSETRON 4 MG/2 ML VIAL IV STA (06:23)
[2017-09-10 06:51] LABS: Basophils # 0.1 10*3/uL (0.0-0.2); Basophils % 0.6 % (0.0-0.8); Eosinophils # 0.1 10*3/uL (0.0-0.87); Eosinophils % 0.8 % (0.00-10.9); Hematocrit 30.8 VOL% (35.7-47.0); Hemoglobin 9.7 GM/DL (12.0-16.0); Immature Granulocytes % 0.7 %; Immature Granulocytes Absolute 0.09 #; Lymphocytes # 1.6 10*3/uL (1.4-4.0); Lymphocytes % 12.4 % (21.3-54.2); Mean Corpuscular HGB Conc 31.5 GM/DL (32-36); Mean Corpuscular Hemoglobin 30 PG (27-34); Mean Corpuscular Volume 94.2 FL (87-102); Mean Platelet Volume 8.7 FL (9.6-12.0); Monocytes # 0.6 10*3/uL (0.11-0.8); Monocytes % 4.9 % (1.7-12.7); NRBC # 0.04 10*3/uL; Neutrophils # 10.5 10*3/uL (1.4-7.4); Neutrophils % 80.6 % (38.7-73.9); Platelet Count 645 T/CUMM (130-400); Red Blood Count 3.27 MC/CUMM (3.8-5.5); Red Cell Distribution Width 16.7 % (9.3-17.3)
[2017-09-10 07:07] LABS: Alanine Aminotransferase 75 U/L (13-56); Albumin 2.9 G/DL (3.4-5.0); Alkaline Phosphatase 304 U/L (45-117); Amylase 190 U/L (25-115); Aspartate Amino Transferase 50 U/L (0-37); Bilirubin,Total < 0.39 MG/DL (0.2-1.0); Blood Urea Nitrogen 86 MG/DL (7-18); Calcium 10.3 MG/DL (8.5-10.1); Glucose 117 MG/DL (74-106); Osmolality,Calculated 286.8 MOS/KG (273-304); Potassium 5.7 MMOL/L (3.5-5.1); Sodium 130 MMOL/L (136-145); Total Protein 10.7 G/DL (6.4-8.3)
[2017-09-10 08:32] LABS: Apearance,Urine TURBID (Clear); Glucose,Urine (UA) 50 mg/dL (Negative); Ketones,Urine Negative (Negative); Nitrite,Urine Negative (Negative); Protein,Urine >=500 MG/DL; Urine Color Brown (Yellow); Urine Specific Gravity 1.015 (1.001-1.035)
[2017-09-10 08:33] LABS: Bilirubin,Urine Negative (Negative); Blood, Urine 1+ mg/dL (Negative); Urine Urobilinogen 0.2 EU/DL (0.2-1.0)
[2017-09-10 08:37] LABS: Bacteria,Urine Few /HPF (Few); RBC,Urine TNTC /HPF (0-4); Squamous Epithelial Cell,Urine Rare /HPF (0-10)
[2017-09-10] MEDS ORDERED: ACETAMINOPHEN 325 MG TABLET PO PRN ×2 (10:26→17:41)
[2017-09-10] MEDS ORDERED: SODIUM CHLORIDE 0.9% 1,000 ML IV SCH (10:30)
[2017-09-10] MEDS: MEROPENEM 500 MG in SYRINGE 1 EACH IV SCH (12:37)
[2017-09-10] MEDS: SODIUM BICARB INJ 150 MEQ in DEXTROSE 5% 850 ML IV SCH ×2 (17:10→23:55)
[2017-09-10] MEDS ORDERED: LORazepam 0.5 MG TABLET PO PRN (17:41)
[2017-09-10] MEDS: PROMETHAZINE 25 MG TABLET PO SCH ×2 (19:45→23:39)
[2017-09-10] MEDS: COLLAGENASE OINT 30 GM TUBE TOP SCH (20:30)
[2017-09-11] MEDS: PROMETHAZINE 25 MG TABLET PO SCH ×6 (02:56→21:03)
[2017-09-11] MEDS: SODIUM BICARB INJ 150 MEQ in DEXTROSE 5% 850 ML IV SCH ×5 (05:50→20:37)
[2017-09-11 06:12] LABS: Basophils # 0.1 10*3/uL (0.0-0.2); Basophils % 0.8 % (0.0-0.8); Eosinophils # 0.4 10*3/uL (0.0-0.87); Hematocrit 22.7 VOL% (35.7-47.0); Hemoglobin 7.4 GM/DL (12.0-16.0); Immature Granulocytes % 0.7 %; Immature Granulocytes Absolute 0.07 #; Lymphocytes # 1.5 10*3/uL (1.4-4.0); Lymphocytes % 15.7 % (21.3-54.2); Mean Corpuscular HGB Conc 32.6 GM/DL (32-36); Mean Corpuscular Hemoglobin 29 PG (27-34); Mean Corpuscular Volume 89.4 FL (87-102); Mean Platelet Volume 8.9 FL (9.6-12.0); NRBC # 0.05 10*3/uL; Neutrophils # 6.6 10*3/uL (1.4-7.4); Neutrophils % 68.8 % (38.7-73.9); Platelet Count 465 T/CUMM (130-400); Red Blood Count 2.54 MC/CUMM (3.8-5.5); Red Cell Distribution Width 15.9 % (9.3-17.3); White Blood Count 9.5 T/CUMM (4-12)
[2017-09-11 06:44] LABS: Bilirubin,Total 0.5 MG/DL (0.2-1.0); Calcium 8.4 MG/DL (8.5-10.1); Osmolality,Calculated 294.2 MOS/KG (273-304); Potassium 3.9 MMOL/L (3.5-5.1); Total Protein 7.3 G/DL (6.4-8.3)
[2017-09-11] MEDS: METOCLOPRAMIDE 5 MG TABLET PO SCH ×3 (08:00→17:07)
[2017-09-11] MEDS ORDERED: SODIUM CHLORIDE 0.9% 1,000 ML IV PRN (08:41)
[2017-09-11] MEDS ORDERED: SODIUM HYPOCHLORITE 0.25% IRRIG 473 ML BOTTLE TOP SCH (09:00)
[2017-09-11] MEDS: ASPIRIN EC 81 MG TABLET PO SCH (09:33)
[2017-09-11] MEDS: PANTOPRAZOLE 40 MG TABLET PO SCH (09:34)
[2017-09-11] MEDS: SERTRALINE 25 MG TABLET PO SCH (09:34)
[2017-09-11] MEDS: amLODIPine 10 MG TABLET PO SCH (09:34)
[2017-09-11] MEDS: ALBUMIN 25% 25 GM in PREMIX 1 EACH IV SCH ×2 (09:48→17:08)
[2017-09-11] MEDS: MEROPENEM 500 MG in SYRINGE 1 EACH IV SCH (11:14)
[2017-09-11] MEDS: COLLAGENASE OINT 30 GM TUBE TOP SCH ×2 (12:20→20:59)
[2017-09-11 17:21] LABS: Hematocrit 27.6 VOL% (35.7-47.0); Hemoglobin 9.5 GM/DL (12.0-16.0)
[2017-09-12] MEDS: ALBUMIN 25% 25 GM in PREMIX 1 EACH IV SCH ×3 (01:05→18:02)
[2017-09-12] MEDS: PROMETHAZINE 25 MG TABLET PO SCH ×6 (01:24→21:41)
[2017-09-12] MEDS: SODIUM BICARB INJ 150 MEQ in DEXTROSE 5% 850 ML IV SCH ×3 (01:30→08:24)
[2017-09-12 06:04] LABS: Basophils # 0.1 10*3/uL (0.0-0.2); Basophils % 0.8 % (0.0-0.8); Eosinophils # 0.3 10*3/uL (0.0-0.87); Eosinophils % 2.7 % (0.00-10.9); Hematocrit 23.6 VOL% (35.7-47.0); Hemoglobin 8.5 GM/DL (12.0-16.0); Immature Granulocytes % 0.6 %; Immature Granulocytes Absolute 0.06 #; Lymphocytes # 1.5 10*3/uL (1.4-4.0); Lymphocytes % 15.1 % (21.3-54.2); Mean Corpuscular Hemoglobin 30 PG (27-34); Mean Corpuscular Volume 82.2 FL (87-102); Mean Platelet Volume 8.8 FL (9.6-12.0); Monocytes # 1.2 10*3/uL (0.11-0.8); Monocytes % 11.3 % (1.7-12.7); NRBC # 0.06 10*3/uL; Neutrophils # 7.1 10*3/uL (1.4-7.4); Neutrophils % 69.5 % (38.7-73.9); Platelet Count 350 T/CUMM (130-400); Red Blood Count 2.87 MC/CUMM (3.8-5.5); Red Cell Distribution Width 15.2 % (9.3-17.3); White Blood Count 10.2 T/CUMM (4-12)
[2017-09-12 06:29] LABS: Albumin 2.7 G/DL (3.4-5.0); Bilirubin,Total 0.5 MG/DL (0.2-1.0); Calcium 7.2 MG/DL (8.5-10.1); Osmolality,Calculated 290.1 MOS/KG (273-304); Potassium 2.7 MMOL/L (3.5-5.1); Total Protein 6.4 G/DL (6.4-8.3)
[2017-09-12] MEDS ORDERED: MAGNESIUM SULF RIDER 4 GM in PREMIX 1 EACH IV PRN (06:42)
[2017-09-12 07:26] LABS: Total Protein (Chem) 9.6 G/DL (6.4-8.3)
[2017-09-12] MEDS: METOCLOPRAMIDE 5 MG TABLET PO SCH (08:18)
[2017-09-12] MEDS: PANTOPRAZOLE 40 MG TABLET PO SCH (08:19)
[2017-09-12] MEDS: SERTRALINE 25 MG TABLET PO SCH (08:19)
[2017-09-12] MEDS: amLODIPine 10 MG TABLET PO SCH (08:19)
[2017-09-12] MEDS: ASPIRIN EC 81 MG TABLET PO SCH (08:20)
[2017-09-12] MEDS: POTASSIUM CHLORIDE 20 MEQ/15 ML UDCUP PO SCH ×4 (08:21→17:17)
[2017-09-12] MEDS: MAGNESIUM SULF RIDER 2 GM in PREMIX 1 EACH IV PRN ×2 (08:25→10:17)
[2017-09-12 09:24] LABS: Albumin (SPE) 3.8 G/DL (3.2-5.3); Albumin (SPE) Rel % 39.1 %; Alpha 1 (SPE) 0.3 G/DL (0.1-0.4); Alpha 1 (SPE) Rel % 3.5 %; Alpha 2 (SPE) 1.8 G/DL (0.4-1.0); Alpha 2 (SPE) Rel % 18.3 %; Beta (SPE) 1.2 G/DL (0.5-1.1); Beta (SPE) Rel % 12.7 %; Gamma (SPE) 2.5 G/DL (0.7-1.7); Gamma (SPE) Rel % 26.4 %
[2017-09-12 09:38] LABS: Albumin (UPER) 404.5 MG/DL
[2017-09-12 09:39] LABS: Albumin (UPER) Rel% 33.1 %; Alpha 1 (UPER) Rel% 3.6 %; Alpha 2 (UPER) Rel % 21.6 %; Beta (UPER) 68.4 MG/DL; Beta (UPER) Rel % 5.6 %; Gamma (UPER) 441.1 MG/DL; Gamma (UPER) Rel % 36.1 %
[2017-09-12] MEDS: MEROPENEM 500 MG in SYRINGE 1 EACH IV SCH (10:45)
[2017-09-12] MEDS: COLLAGENASE OINT 30 GM TUBE TOP SCH ×2 (11:35→21:41)
[2017-09-12] MEDS: ERGOCALCIFEROL 50,000 UNIT CAPSULE PO SCH (11:48)
[2017-09-12] MEDS: CALCITRIOL 0.25 MCG CAPSULE PO SCH (11:48)
[2017-09-12] MEDS: DEXT 5% NACL 0.45% KCL 40 MEQ 40 MEQ/1,000 ML BAG IV SCH ×2 (11:50→21:40)
[2017-09-12] MEDS: SCOPOLAMINE 1.5 MG PATCH TRANSDERM SCH (11:50)
[2017-09-12] MEDS ORDERED: SODIUM BICARB INJ 150 MEQ in DEXTROSE 5% 1,000 ML IV SCH (16:30)
[2017-09-13] MEDS: ALBUMIN 25% 25 GM in PREMIX 1 EACH IV SCH (02:22)
[2017-09-13] MEDS: PROMETHAZINE 25 MG TABLET PO SCH ×2 (02:23→05:42)
[2017-09-13 05:43] LABS: Basophils # 0.1 10*3/uL (0.0-0.2); Basophils % 0.9 % (0.0-0.8); Eosinophils # 0.4 10*3/uL (0.0-0.87); Eosinophils % 5.1 % (0.00-10.9); Hematocrit 25.3 VOL% (35.7-47.0); Hemoglobin 8.5 GM/DL (12.0-16.0); Immature Granulocytes % 0.2 %; Immature Granulocytes Absolute 0.02 #; Lymphocytes # 1.2 10*3/uL (1.4-4.0); Lymphocytes % 14.6 % (21.3-54.2); Mean Corpuscular HGB Conc 33.6 GM/DL (32-36); Mean Corpuscular Hemoglobin 30 PG (27-34); Mean Corpuscular Volume 88.5 FL (87-102); Mean Platelet Volume 9.1 FL (9.6-12.0); Neutrophils # 5.4 10*3/uL (1.4-7.4); Neutrophils % 67.2 % (38.7-73.9); Platelet Count 264 T/CUMM (130-400); Red Blood Count 2.86 MC/CUMM (3.8-5.5); Red Cell Distribution Width 15.6 % (9.3-17.3); White Blood Count 8.1 T/CUMM (4-12)
[2017-09-13 06:22] LABS: Albumin 2.9 G/DL (3.4-5.0); Bilirubin,Total 0.5 MG/DL (0.2-1.0); Calcium 7.8 MG/DL (8.5-10.1); Osmolality,Calculated 284.1 MOS/KG (273-304); Potassium 4.9 MMOL/L (3.5-5.1); Total Protein 6.5 G/DL (6.4-8.3)
[2017-09-13] MEDS: CALCITRIOL 0.25 MCG CAPSULE PO SCH (09:57)
[2017-09-13] MEDS: amLODIPine 10 MG TABLET PO SCH (09:57)
[2017-09-13] MEDS: PANTOPRAZOLE 40 MG TABLET PO SCH (09:57)
[2017-09-13] MEDS: SERTRALINE 25 MG TABLET PO SCH (09:57)
[2017-09-13] MEDS: ASPIRIN EC 81 MG TABLET PO SCH (09:57)
[2017-09-13] MEDS: DEXTROSE 5% NACL 0.45% 1,000 ML IV SCH ×2 (10:24→15:15)
[2017-09-13] MEDS: COLLAGENASE OINT 30 GM TUBE TOP SCH (10:24)
[2017-09-13] MEDS: MEROPENEM 500 MG in SYRINGE 1 EACH IV SCH (12:26)
[2017-09-13] MEDS: DEXT 5% NACL 0.45% KCL 40 MEQ 40 MEQ/1,000 ML BAG IV SCH (12:27)
[2017-09-13 13:34] LABS: Immuno Free Light Chain Kappa 23.04 MG/DL (0.33-1.94); Immuno Free Light Chain Lambda 10.98 MG/DL (0.57-2.63); Immuno Free Light Chain Ratio 2.1 MG/DL (0.26-1.65)
[2017-09-13] MEDS: ONDANSETRON 4 MG/2 ML VIAL IV PRN (20:42)
[2017-09-14] MEDS: ASPIRIN EC 81 MG TABLET PO SCH (09:12)
[2017-09-14] MEDS: CALCITRIOL 0.25 MCG CAPSULE PO SCH (09:13)
[2017-09-14] MEDS: SERTRALINE 25 MG TABLET PO SCH (09:13)
[2017-09-14] MEDS: amLODIPine 5 MG TABLET PO SCH (09:13)
[2017-09-14] MEDS: PANTOPRAZOLE 40 MG TABLET PO SCH (09:14)
[2017-09-14 09:35] LABS: Basophils # 0.1 10*3/uL (0.0-0.2); Basophils % 0.8 % (0.0-0.8); Eosinophils # 0.6 10*3/uL (0.0-0.87); Eosinophils % 4.9 % (0.00-10.9); Hemoglobin 9.3 GM/DL (12.0-16.0); Immature Granulocytes % 0.4 %; Immature Granulocytes Absolute 0.05 #; Lymphocytes # 1.1 10*3/uL (1.4-4.0); Lymphocytes % 8.9 % (21.3-54.2); Mean Corpuscular HGB Conc 32.1 GM/DL (32-36); Mean Corpuscular Hemoglobin 30 PG (27-34); Mean Corpuscular Volume 92.1 FL (87-102); Mean Platelet Volume 8.9 FL (9.6-12.0); Monocytes % 7.8 % (1.7-12.7); Neutrophils # 9.8 10*3/uL (1.4-7.4); Neutrophils % 77.2 % (38.7-73.9); Platelet Count 386 T/CUMM (130-400); Red Blood Count 3.15 MC/CUMM (3.8-5.5); Red Cell Distribution Width 15.2 % (9.3-17.3); White Blood Count 12.7 T/CUMM (4-12)
[2017-09-14 09:57] LABS: Albumin 3.2 G/DL (3.4-5.0); Calcium 8.5 MG/DL (8.5-10.1); Osmolality,Calculated 283.8 MOS/KG (273-304); Potassium 4.8 MMOL/L (3.5-5.1)
[2017-09-14] MEDS: DEXTROSE 5% NACL 0.45% 1,000 ML IV SCH ×2 (11:12→15:29)
[2017-09-14] MEDS: ONDANSETRON 4 MG/2 ML VIAL IV PRN ×2 (12:36→17:34)
[2017-09-15 05:05] LABS: Basophils # 0.1 10*3/uL (0.0-0.2); Basophils % 0.9 % (0.0-0.8); Eosinophils # 0.8 10*3/uL (0.0-0.87); Hematocrit 28.7 VOL% (35.7-47.0); Hemoglobin 9.4 GM/DL (12.0-16.0); Immature Granulocytes % 0.5 %; Immature Granulocytes Absolute 0.05 #; Lymphocytes # 1.3 10*3/uL (1.4-4.0); Lymphocytes % 12.6 % (21.3-54.2); Mean Corpuscular HGB Conc 32.8 GM/DL (32-36); Mean Corpuscular Hemoglobin 30 PG (27-34); Mean Corpuscular Volume 91.1 FL (87-102); Mean Platelet Volume 8.8 FL (9.6-12.0); Monocytes % 9.7 % (1.7-12.7); Neutrophils # 7.1 10*3/uL (1.4-7.4); Neutrophils % 68.3 % (38.7-73.9); Platelet Count 381 T/CUMM (130-400); Red Blood Count 3.15 MC/CUMM (3.8-5.5); Red Cell Distribution Width 14.9 % (9.3-17.3); White Blood Count 10.4 T/CUMM (4-12)
[2017-09-15 05:42] LABS: Albumin 2.7 G/DL (3.4-5.0); Calcium 8.6 MG/DL (8.5-10.1); Potassium 4.3 MMOL/L (3.5-5.1)
[2017-09-15] MEDS: DEXTROSE 5% NACL 0.45% 1,000 ML IV SCH ×2 (06:08→16:37)
[2017-09-15] MEDS: SCOPOLAMINE 1.5 MG PATCH TRANSDERM SCH (08:38)
[2017-09-15] MEDS: PANTOPRAZOLE 40 MG TABLET PO SCH (08:40)
[2017-09-15] MEDS: ASPIRIN EC 81 MG TABLET PO SCH (08:40)
[2017-09-15] MEDS: SERTRALINE 25 MG TABLET PO SCH (08:40)
[2017-09-15] MEDS: amLODIPine 5 MG TABLET PO SCH (08:40)
[2017-09-15] MEDS: CHOLESTYRAMINE 4 GM PACK PO SCH ×2 (09:26→20:24)
[2017-09-15] MEDS: ONDANSETRON 4 MG/2 ML VIAL IV PRN ×2 (12:04→21:50)
[2017-09-16] MEDS: DEXTROSE 5% NACL 0.45% 1,000 ML IV SCH ×3 (02:29→22:36)
[2017-09-16 06:19] LABS: Basophils # 0.1 10*3/uL (0.0-0.2); Basophils % 1.3 % (0.0-0.8); Eosinophils # 0.7 10*3/uL (0.0-0.87); Eosinophils % 7.6 % (0.00-10.9); Hematocrit 30.1 VOL% (35.7-47.0); Hemoglobin 9.3 GM/DL (12.0-16.0); Immature Granulocytes % 0.4 %; Immature Granulocytes Absolute 0.04 #; Lymphocytes # 1.5 10*3/uL (1.4-4.0); Lymphocytes % 16.8 % (21.3-54.2); Mean Corpuscular HGB Conc 30.9 GM/DL (32-36); Mean Corpuscular Hemoglobin 29 PG (27-34); Mean Corpuscular Volume 94.1 FL (87-102); Mean Platelet Volume 9.3 FL (9.6-12.0); Monocytes # 0.8 10*3/uL (0.11-0.8); Monocytes % 9.1 % (1.7-12.7); Neutrophils # 5.9 10*3/uL (1.4-7.4); Neutrophils % 64.8 % (38.7-73.9); Platelet Count 419 T/CUMM (130-400); Red Cell Distribution Width 14.5 % (9.3-17.3); White Blood Count 9.2 T/CUMM (4-12)
[2017-09-16 06:42] LABS: Albumin 2.9 G/DL (3.4-5.0); Calcium 8.6 MG/DL (8.5-10.1); Osmolality,Calculated 275.8 MOS/KG (273-304); Potassium 4.9 MMOL/L (3.5-5.1)
[2017-09-16] MEDS: PANTOPRAZOLE 40 MG TABLET PO SCH (08:38)
[2017-09-16] MEDS: amLODIPine 5 MG TABLET PO SCH (08:38)
[2017-09-16] MEDS: SERTRALINE 25 MG TABLET PO SCH (08:38)
[2017-09-16] MEDS: ASPIRIN EC 81 MG TABLET PO SCH (08:38)
[2017-09-16] MEDS: CHOLESTYRAMINE 4 GM PACK PO SCH ×2 (08:38→22:40)
[2017-09-16] MEDS ORDERED: PROCHLORPERAZINE 5 MG TABLET PO SCH (09:00)
[2017-09-16] MEDS: ONDANSETRON 4 MG/2 ML VIAL IV PRN ×2 (12:07→18:12)
[2017-09-16] MEDS: PROCHLORPERAZINE 10 MG TABLET PO SCH ×2 (13:45→22:40)
[2017-09-17 05:21] LABS: Basophils # 0.1 10*3/uL (0.0-0.2); Basophils % 1.1 % (0.0-0.8); Eosinophils # 0.6 10*3/uL (0.0-0.87); Eosinophils % 6.1 % (0.00-10.9); Hematocrit 28.4 VOL% (35.7-47.0); Hemoglobin 8.8 GM/DL (12.0-16.0); Immature Granulocytes % 0.3 %; Immature Granulocytes Absolute 0.03 #; Lymphocytes # 1.4 10*3/uL (1.4-4.0); Lymphocytes % 14.2 % (21.3-54.2); Mean Corpuscular Hemoglobin 29 PG (27-34); Mean Corpuscular Volume 94.7 FL (87-102); Neutrophils # 6.7 10*3/uL (1.4-7.4); Neutrophils % 68.3 % (38.7-73.9); Platelet Count 400 T/CUMM (130-400); Red Cell Distribution Width 14.1 % (9.3-17.3); White Blood Count 9.8 T/CUMM (4-12)
[2017-09-17 05:57] LABS: Albumin 2.6 G/DL (3.4-5.0); Calcium 8.8 MG/DL (8.5-10.1); Osmolality,Calculated 274.7 MOS/KG (273-304); Potassium 4.8 MMOL/L (3.5-5.1)
[2017-09-17] MEDS: PROCHLORPERAZINE 10 MG TABLET PO SCH ×2 (10:12→21:02)
[2017-09-17] MEDS: CHOLESTYRAMINE 4 GM PACK PO SCH ×2 (10:13→21:02)
[2017-09-17] MEDS: ASPIRIN EC 81 MG TABLET PO SCH (10:13)
[2017-09-17] MEDS: SERTRALINE 25 MG TABLET PO SCH (10:13)
[2017-09-17] MEDS: amLODIPine 5 MG TABLET PO SCH (10:13)
[2017-09-17] MEDS: DEXTROSE 5% NACL 0.45% 1,000 ML IV SCH ×2 (11:59→21:01)
[2017-09-18 05:55] LABS: Basophils # 0.1 10*3/uL (0.0-0.2); Basophils % 1.2 % (0.0-0.8); Eosinophils # 0.5 10*3/uL (0.0-0.87); Eosinophils % 5.8 % (0.00-10.9); Hematocrit 27.3 VOL% (35.7-47.0); Hemoglobin 8.7 GM/DL (12.0-16.0); Immature Granulocytes % 0.3 %; Immature Granulocytes Absolute 0.03 #; Lymphocytes # 1.5 10*3/uL (1.4-4.0); Lymphocytes % 16.1 % (21.3-54.2); Mean Corpuscular HGB Conc 31.9 GM/DL (32-36); Mean Corpuscular Hemoglobin 30 PG (27-34); Mean Corpuscular Volume 92.5 FL (87-102); Mean Platelet Volume 9.3 FL (9.6-12.0); Monocytes # 0.9 10*3/uL (0.11-0.8); Monocytes % 9.5 % (1.7-12.7); Neutrophils # 6.2 10*3/uL (1.4-7.4); Neutrophils % 67.1 % (38.7-73.9); Platelet Count 429 T/CUMM (130-400); Red Blood Count 2.95 MC/CUMM (3.8-5.5); Red Cell Distribution Width 14.2 % (9.3-17.3); White Blood Count 9.2 T/CUMM (4-12)
[2017-09-18 06:22] LABS: Albumin 2.4 G/DL (3.4-5.0); Calcium 8.5 MG/DL (8.5-10.1); Osmolality,Calculated 275.5 MOS/KG (273-304); Potassium 4.6 MMOL/L (3.5-5.1)
[2017-09-18] MEDS: DEXTROSE 5% NACL 0.45% 1,000 ML IV SCH (07:08)
[2017-09-18] MEDS: SERTRALINE 25 MG TABLET PO SCH (08:40)
[2017-09-18] MEDS: PROCHLORPERAZINE 10 MG TABLET PO SCH ×2 (08:40→22:31)
[2017-09-18] MEDS: ASPIRIN EC 81 MG TABLET PO SCH (08:40)
[2017-09-18] MEDS: amLODIPine 5 MG TABLET PO SCH (08:40)
[2017-09-18] MEDS: ONDANSETRON 4 MG/2 ML VIAL IV PRN (10:48)
[2017-09-19] MEDS: ASPIRIN EC 81 MG TABLET PO SCH (08:33)
[2017-09-19] MEDS: PROCHLORPERAZINE 10 MG TABLET PO SCH ×2 (08:33→21:04)
[2017-09-19] MEDS: SERTRALINE 25 MG TABLET PO SCH (08:33)
[2017-09-19] MEDS: amLODIPine 5 MG TABLET PO SCH (08:33)
[2017-09-19] MEDS: ERGOCALCIFEROL 50,000 UNIT CAPSULE PO SCH (09:44)
[2017-09-20 07:54] VITALS: BP 138/71
[2017-09-20] MEDS: ASPIRIN EC 81 MG TABLET PO SCH (09:49)
[2017-09-20] MEDS: PROCHLORPERAZINE 10 MG TABLET PO SCH (09:49)
[2017-09-20] MEDS: SERTRALINE 25 MG TABLET PO SCH (09:49)
[2017-09-20] MEDS: amLODIPine 5 MG TABLET PO SCH (09:49)
[2017-09-20] MEDS ORDERED: TUBERCULIN SKIN TEST 0.1 ML SYRINGE INTRADERM ONE (11:30)
== END 2017-09-20 11:32 | DRG 682 ==
LOC: N.ED 05:45 → N.EDINP 08:54 → SUATTDRO 08:54 → N.EDINP 10:00 → N.5E 10:37 → N.ICU 19:14 → N.2E 09-13 15:48
PROVIDERS: ADMIT Internal Medicine; ATTEND Internal Medicine

== ENCOUNTER 2017-10-10 11:17 | Inpatient (IN) ==
[2017-10-10] MEDS ORDERED: SODIUM CHLORIDE 0.9% 1,000 ML IV STA (11:38)
[2017-10-10 13:11] LABS: Basophils % 0.4 % (0.0-0.8); Eosinophils % 0.4 % (0.00-10.9); Hematocrit 33.2 VOL% (35.7-47.0); Hemoglobin 10.7 GM/DL (12.0-16.0); Immature Granulocytes % 0.3 %; Immature Granulocytes Absolute 0.02 #; Lymphocytes # 0.9 10*3/uL (1.4-4.0); Lymphocytes % 12.4 % (21.3-54.2); Mean Corpuscular HGB Conc 32.2 GM/DL (32-36); Mean Corpuscular Hemoglobin 29 PG (27-34); Mean Corpuscular Volume 91.2 FL (87-102); Mean Platelet Volume 9.2 FL (9.6-12.0); Monocytes # 0.4 10*3/uL (0.11-0.8); Monocytes % 5.9 % (1.7-12.7); NRBC # 0.02 10*3/uL; Neutrophils # 5.6 10*3/uL (1.4-7.4); Neutrophils % 80.6 % (38.7-73.9); Platelet Count 371 T/CUMM (130-400); Red Blood Count 3.64 MC/CUMM (3.8-5.5); Red Cell Distribution Width 14.6 % (9.3-17.3); White Blood Count 6.9 T/CUMM (4-12)
[2017-10-10 13:12] LABS: PT Patient Result 10.7 SECS; Partial Thromboplastin Time 32.4 SECS (0-40)
[2017-10-10 13:22] LABS: Alanine Aminotransferase 40 U/L (13-56); Alkaline Phosphatase 209 U/L (45-117); Aspartate Amino Transferase 28 U/L (0-37); Calcium 10.1 MG/DL (8.5-10.1)
[2017-10-10 13:23] LABS: Albumin 3.8 G/DL (3.4-5.0); Bilirubin,Total < 0.39 MG/DL (0.2-1.0); Blood Urea Nitrogen 157 MG/DL (7-18); Glucose 123 MG/DL (74-106); Osmolality,Calculated 310.9 MOS/KG (273-304); Potassium 5.7 MMOL/L (3.5-5.1); Sodium 129 MMOL/L (136-145); Total Protein 9.4 G/DL (6.4-8.3)
[2017-10-10] MEDS ORDERED: ACETAMINOPHEN 325 MG TABLET PO PRN (14:16)
[2017-10-10] MEDS ORDERED: diphenhydrAMINE CAP 25 MG CAPSULE PO PRN (14:16)
[2017-10-10] MEDS ORDERED: MORPHINE 4 MG/1 ML VIAL IV PRN (14:16)
[2017-10-10] MEDS ORDERED: SODIUM CHLORIDE 0.9% 1,000 ML IV ONE (14:26)
[2017-10-10] MEDS ORDERED: ATENOLOL 50 MG TABLET PO SCH (14:30)
[2017-10-10] MEDS: SODIUM BICARB INJ 100 MEQ in DEXTROSE 5% 1,000 ML IV SCH (15:17)
[2017-10-10] MEDS ORDERED: ASPIRIN CHEW 81 MG TABLET PO ONE (15:36)
[2017-10-10] MEDS: SERTRALINE 25 MG TABLET PO SCH (16:15)
[2017-10-10] MEDS: ASPIRIN EC 81 MG TABLET PO SCH (16:15)
[2017-10-10] MEDS: PROCHLORPERAZINE 10 MG TABLET PO SCH ×2 (16:15→21:46)
[2017-10-10] MEDS: HEPARIN 5,000 UNIT/1 ML VIAL SUBCUT SCH ×2 (16:16→21:47)
[2017-10-10 16:23] LABS: Risk Ratio 6.34; VLDL CHOLESTEROL 54.4 MG/DL
[2017-10-10 16:32] LABS: Ammonia 47 UMOL/L (11-32)
[2017-10-11] MEDS: SODIUM BICARB INJ 100 MEQ in DEXTROSE 5% 1,000 ML IV SCH ×3 (02:44→19:00)
[2017-10-11 08:24] LABS: Basophils % 0.7 % (0.0-0.8); Immature Granulocytes % 0.4 %; Immature Granulocytes Absolute 0.02 #; Lymphocytes % 17.7 % (21.3-54.2); Monocytes % 8.7 % (1.7-12.7); Red Cell Distribution Width 14.4 % (9.3-17.3)
[2017-10-11 08:33] LABS: Eosinophils # 0.1 10*3/uL (0.0-0.87); Eosinophils % 1.6 % (0.00-10.9); Hematocrit 24.9 VOL% (35.7-47.0); Mean Corpuscular HGB Conc 33.3 GM/DL (32-36); Mean Corpuscular Hemoglobin 29 PG (27-34); Mean Platelet Volume 9.8 FL (9.6-12.0); Monocytes # 0.5 10*3/uL (0.11-0.8); NRBC # 0.04 10*3/uL; Neutrophils % 70.9 % (38.7-73.9); White Blood Count 5.7 T/CUMM (4-12)
[2017-10-11 08:42] LABS: Calcium 8.1 MG/DL (8.5-10.1); Osmolality,Calculated 310.7 MOS/KG (273-304); Potassium 4.5 MMOL/L (3.5-5.1)
[2017-10-11] MEDS: HEPARIN 5,000 UNIT/1 ML VIAL SUBCUT SCH ×2 (09:12→21:46)
[2017-10-11] MEDS: SERTRALINE 25 MG TABLET PO SCH (09:12)
[2017-10-11] MEDS: PROCHLORPERAZINE 10 MG TABLET PO SCH ×2 (09:12→21:45)
[2017-10-11] MEDS: ASPIRIN EC 81 MG TABLET PO SCH (09:12)
[2017-10-11 10:21] LABS: Hemoglobin 8.3 GM/DL (12.0-16.0); Platelet Count 267 T/CUMM (130-400); Red Blood Count 2.83 MC/CUMM (3.8-5.5)
[2017-10-11] MEDS ORDERED: MAGNESIUM SULF RIDER 2 GM in PREMIX 1 EACH IV PRN (12:09)
[2017-10-11] MEDS ORDERED: MAGNESIUM SULF RIDER 4 GM in PREMIX 1 EACH IV PRN (12:09)
[2017-10-11] MEDS ORDERED: DEXTROSE 50% 25 GM/50 ML VIAL IV PRN (12:19)
[2017-10-11] MEDS ORDERED: GLUCAGON 1 MG VIAL IM PRN (12:19)
[2017-10-11] MEDS: SERTRALINE 50 MG TABLET PO SCH (12:44)
[2017-10-11] MEDS: ACETIC ACID 0.25% IRRIGATION 1,000 ML BOTTLE IRRIG SCH (15:25)
[2017-10-11] MEDS: SODIUM HYPOCHLORITE 0.25% IRRIG 473 ML BOTTLE TOP SCH (15:25)
[2017-10-11] MEDS: SKIN HEALING OINT (AQUAPHOR) 50 GM TUBE TOP SCH (16:22)
[2017-10-11] MEDS: INSULIN LISPRO 100 UNIT/ML SUBCUT SCH (19:11)
[2017-10-11] MEDS: ONDANSETRON 4 MG/2 ML VIAL IV PRN (21:48)
[2017-10-12] MEDS: SODIUM BICARB INJ 100 MEQ in DEXTROSE 5% 1,000 ML IV SCH (01:32)
[2017-10-12 05:50] LABS: Basophils % 0.8 % (0.0-0.8); Eosinophils # 0.2 10*3/uL (0.0-0.87); Eosinophils % 3.7 % (0.00-10.9); Hematocrit 19.4 VOL% (35.7-47.0); Immature Granulocytes % 0.4 %; Immature Granulocytes Absolute 0.02 #; Lymphocytes # 1.3 10*3/uL (1.4-4.0); Lymphocytes % 26.7 % (21.3-54.2); Mean Corpuscular HGB Conc 35.1 GM/DL (32-36); Mean Corpuscular Hemoglobin 29 PG (27-34); Mean Corpuscular Volume 83.6 FL (87-102); Mean Platelet Volume 9.8 FL (9.6-12.0); Monocytes # 0.5 10*3/uL (0.11-0.8); Monocytes % 10.2 % (1.7-12.7); NRBC # 0.03 10*3/uL; Neutrophils # 2.9 10*3/uL (1.4-7.4); Neutrophils % 58.2 % (38.7-73.9); Platelet Count 262 T/CUMM (130-400); Red Blood Count 2.32 MC/CUMM (3.8-5.5); White Blood Count 4.9 T/CUMM (4-12)
[2017-10-12 05:51] LABS: Calcium 8.1 MG/DL (8.5-10.1); Osmolality,Calculated 310.2 MOS/KG (273-304)
[2017-10-12 07:09] LABS: Hemoglobin 6.8 GM/DL (12.0-16.0)
[2017-10-12] MEDS ORDERED: SODIUM CHLORIDE 0.9% 1,000 ML IV PRN (08:45)
[2017-10-12] MEDS: ASPIRIN EC 81 MG TABLET PO SCH (09:47)
[2017-10-12] MEDS: ONDANSETRON 4 MG/2 ML VIAL IV PRN (09:47)
[2017-10-12] MEDS: HEPARIN 5,000 UNIT/1 ML VIAL SUBCUT SCH ×2 (09:47→21:09)
[2017-10-12] MEDS: SERTRALINE 50 MG TABLET PO SCH (09:47)
[2017-10-12] MEDS: PROCHLORPERAZINE 10 MG TABLET PO SCH ×2 (09:47→21:09)
[2017-10-12] MEDS: INSULIN LISPRO 100 UNIT/ML SUBCUT SCH ×2 (10:01→17:57)
[2017-10-12] MEDS: POTASSIUM CHLORIDE INJ 40 MEQ in DEXTROSE 5% 1,000 ML IV SCH (10:26)
[2017-10-12] MEDS ORDERED: PROMETHAZINE 25 MG TABLET PO PRN (11:30)
[2017-10-12] MEDS: SKIN HEALING OINT (AQUAPHOR) 50 GM TUBE TOP SCH (17:57)
[2017-10-12] MEDS: ACETIC ACID 0.25% IRRIGATION 1,000 ML BOTTLE IRRIG SCH (17:57)
[2017-10-12] MEDS: SODIUM HYPOCHLORITE 0.25% IRRIG 473 ML BOTTLE TOP SCH (17:57)
[2017-10-13] MEDS: POTASSIUM CHLORIDE INJ 40 MEQ in DEXTROSE 5% 1,000 ML IV SCH ×4 (04:05→17:53)
[2017-10-13 05:32] LABS: Basophils % 0.4 % (0.0-0.8); Eosinophils # 0.2 10*3/uL (0.0-0.87); Eosinophils % 2.8 % (0.00-10.9); Hematocrit 28.4 VOL% (35.7-47.0); Hemoglobin 10.3 GM/DL (12.0-16.0); Immature Granulocytes % 0.3 %; Immature Granulocytes Absolute 0.02 #; Lymphocytes # 1.2 10*3/uL (1.4-4.0); Lymphocytes % 17.5 % (21.3-54.2); Mean Corpuscular HGB Conc 36.3 GM/DL (32-36); Mean Corpuscular Hemoglobin 30 PG (27-34); Mean Corpuscular Volume 83.8 FL (87-102); Mean Platelet Volume 9.6 FL (9.6-12.0); Monocytes # 0.8 10*3/uL (0.11-0.8); Monocytes % 11.9 % (1.7-12.7); NRBC # 0.04 10*3/uL; Neutrophils # 4.5 10*3/uL (1.4-7.4); Neutrophils % 67.1 % (38.7-73.9); Platelet Count 246 T/CUMM (130-400); Red Blood Count 3.39 MC/CUMM (3.8-5.5); Red Cell Distribution Width 14.5 % (9.3-17.3); White Blood Count 6.7 T/CUMM (4-12)
[2017-10-13 05:36] LABS: PT Patient Result 10.9 SECS
[2017-10-13 05:49] LABS: Osmolality,Calculated 302.1 MOS/KG (273-304); Potassium 3.7 MMOL/L (3.5-5.1)
[2017-10-13] MEDS: INSULIN LISPRO 100 UNIT/ML SUBCUT SCH (08:32)
[2017-10-13] MEDS: PROCHLORPERAZINE 10 MG TABLET PO SCH ×2 (09:54→20:13)
[2017-10-13] MEDS: SERTRALINE 50 MG TABLET PO SCH (09:54)
[2017-10-13] MEDS: ASPIRIN EC 81 MG TABLET PO SCH (09:54)
[2017-10-13] MEDS: HEPARIN 5,000 UNIT/1 ML VIAL SUBCUT SCH ×2 (09:55→20:16)
[2017-10-13] MEDS: ONDANSETRON 4 MG TABLET PO PRN (13:16)
[2017-10-13] MEDS: SODIUM HYPOCHLORITE 0.25% IRRIG 473 ML BOTTLE TOP SCH (13:45)
[2017-10-13] MEDS: ACETIC ACID 0.25% IRRIGATION 1,000 ML BOTTLE IRRIG SCH (13:45)
[2017-10-13] MEDS: SKIN HEALING OINT (AQUAPHOR) 50 GM TUBE TOP SCH (15:18)
[2017-10-13] MEDS: ONDANSETRON 4 MG/2 ML VIAL IV PRN (16:20)
[2017-10-13 20:36] LABS: Apearance,Urine CLEAR (Clear); Bilirubin,Urine Negative (Negative); Blood, Urine Negative (Negative); Glucose,Urine (UA) Negative (Negative); Ketones,Urine Negative (Negative); Nitrite,Urine Negative (Negative); Protein,Urine Negative; RBC,Urine <1 /HPF (0-4); Squamous Epithelial Cell,Urine Occasional /HPF (0-10); Transitional Epi Cells,Urine Occasional /HPF (<1); Urine Color Straw (Yellow); Urine Specific Gravity 1.005 (1.001-1.035); Urine Urobilinogen < 2.0 EU/DL (0.2-1.0); WBC,Urine 5 /HPF (0-6)
[2017-10-14] MEDS: POTASSIUM CHLORIDE INJ 40 MEQ in DEXTROSE 5% 1,000 ML IV SCH ×2 (02:15→16:05)
[2017-10-14] MEDS: ACETIC ACID 0.25% IRRIGATION 1,000 ML BOTTLE IRRIG SCH (09:10)
[2017-10-14] MEDS: SODIUM HYPOCHLORITE 0.25% IRRIG 473 ML BOTTLE TOP SCH (09:10)
[2017-10-14 09:40] LABS: Calcium 9.1 MG/DL (8.5-10.1); Osmolality,Calculated 288.5 MOS/KG (273-304); Potassium 5.2 MMOL/L (3.5-5.1)
[2017-10-14] MEDS: HEPARIN 5,000 UNIT/1 ML VIAL SUBCUT SCH ×2 (10:26→20:16)
[2017-10-14] MEDS: ASPIRIN EC 81 MG TABLET PO SCH (11:03)
[2017-10-14] MEDS: SERTRALINE 50 MG TABLET PO SCH (11:03)
[2017-10-14] MEDS: PROCHLORPERAZINE 10 MG TABLET PO SCH ×2 (11:04→20:15)
[2017-10-14] MEDS: SODIUM CHLORIDE 0.9% 1,000 ML IV SCH (14:28)
[2017-10-14] MEDS: ONDANSETRON 4 MG/2 ML VIAL IV PRN (17:53)
[2017-10-14] MEDS: SKIN HEALING OINT (AQUAPHOR) 50 GM TUBE TOP SCH (17:59)
[2017-10-14] MEDS: ONDANSETRON 4 MG TABLET PO PRN (20:15)
[2017-10-15] MEDS: SODIUM CHLORIDE 0.9% 1,000 ML IV SCH ×5 (01:40→21:36)
[2017-10-15 04:52] LABS: Calcium 9.1 MG/DL (8.5-10.1); Osmolality,Calculated 290.8 MOS/KG (273-304)
[2017-10-15] MEDS: ONDANSETRON 4 MG/2 ML VIAL IV PRN (08:51)
[2017-10-15] MEDS ORDERED: SCOPOLAMINE 1.5 MG PATCH TRANSDERM SCH (11:30)
[2017-10-15] MEDS: SERTRALINE 50 MG TABLET PO SCH (13:28)
[2017-10-15] MEDS: PROCHLORPERAZINE 10 MG TABLET PO SCH ×2 (13:28→21:36)
[2017-10-15] MEDS: ASPIRIN EC 81 MG TABLET PO SCH (13:29)
[2017-10-15] MEDS: HEPARIN 5,000 UNIT/1 ML VIAL SUBCUT SCH ×2 (13:35→21:35)
[2017-10-15] MEDS: SODIUM HYPOCHLORITE 0.25% IRRIG 473 ML BOTTLE TOP SCH (17:15)
[2017-10-15] MEDS: ACETIC ACID 0.25% IRRIGATION 1,000 ML BOTTLE IRRIG SCH (17:15)
[2017-10-15] MEDS: SKIN HEALING OINT (AQUAPHOR) 50 GM TUBE TOP SCH (18:19)
[2017-10-16] MEDS: SODIUM CHLORIDE 0.9% 1,000 ML IV SCH ×3 (04:18→22:04)
[2017-10-16 05:29] LABS: Basophils # 0.1 10*3/uL (0.0-0.2); Basophils % 0.7 % (0.0-0.8); Eosinophils # 0.2 10*3/uL (0.0-0.87); Eosinophils % 3.2 % (0.00-10.9); Hematocrit 31.2 VOL% (35.7-47.0); Hemoglobin 10.1 GM/DL (12.0-16.0); Immature Granulocytes % 0.3 %; Immature Granulocytes Absolute 0.02 #; Lymphocytes % 13.3 % (21.3-54.2); Mean Corpuscular HGB Conc 32.4 GM/DL (32-36); Mean Corpuscular Hemoglobin 30 PG (27-34); Mean Platelet Volume 9.7 FL (9.6-12.0); Monocytes # 0.6 10*3/uL (0.11-0.8); Monocytes % 8.1 % (1.7-12.7); Neutrophils # 5.4 10*3/uL (1.4-7.4); Neutrophils % 74.4 % (38.7-73.9); Platelet Count 233 T/CUMM (130-400); Red Blood Count 3.39 MC/CUMM (3.8-5.5); Red Cell Distribution Width 14.7 % (9.3-17.3); White Blood Count 7.3 T/CUMM (4-12)
[2017-10-16 05:46] LABS: Calcium 9.2 MG/DL (8.5-10.1); Osmolality,Calculated 290.4 MOS/KG (273-304); Potassium 4.6 MMOL/L (3.5-5.1)
[2017-10-16] MEDS: PROCHLORPERAZINE 10 MG TABLET PO SCH ×2 (09:49→20:59)
[2017-10-16] MEDS: SERTRALINE 50 MG TABLET PO SCH (09:49)
[2017-10-16] MEDS: ASPIRIN EC 81 MG TABLET PO SCH (09:50)
[2017-10-16] MEDS: HEPARIN 5,000 UNIT/1 ML VIAL SUBCUT SCH ×2 (09:50→21:00)
[2017-10-16] MEDS: GABAPENTIN 100 MG CAPSULE PO SCH ×2 (09:53→20:59)
[2017-10-16] MEDS: SODIUM HYPOCHLORITE 0.25% IRRIG 473 ML BOTTLE TOP SCH (18:30)
[2017-10-16] MEDS: ACETIC ACID 0.25% IRRIGATION 1,000 ML BOTTLE IRRIG SCH (18:30)
[2017-10-16] MEDS: SKIN HEALING OINT (AQUAPHOR) 50 GM TUBE TOP SCH (18:44)
[2017-10-17 03:43] LABS: Basophils # 0.1 10*3/uL (0.0-0.2); Eosinophils # 0.4 10*3/uL (0.0-0.87); Eosinophils % 4.8 % (0.00-10.9); Hemoglobin 9.5 GM/DL (12.0-16.0); Immature Granulocytes % 0.4 %; Immature Granulocytes Absolute 0.03 #; Lymphocytes # 1.4 10*3/uL (1.4-4.0); Lymphocytes % 18.7 % (21.3-54.2); Mean Corpuscular HGB Conc 31.7 GM/DL (32-36); Mean Corpuscular Hemoglobin 30 PG (27-34); Mean Corpuscular Volume 93.8 FL (87-102); Mean Platelet Volume 9.9 FL (9.6-12.0); Monocytes # 0.6 10*3/uL (0.11-0.8); Monocytes % 8.6 % (1.7-12.7); Neutrophils # 4.8 10*3/uL (1.4-7.4); Neutrophils % 66.5 % (38.7-73.9); Platelet Count 215 T/CUMM (130-400); Red Cell Distribution Width 14.7 % (9.3-17.3); White Blood Count 7.2 T/CUMM (4-12)
[2017-10-17 04:13] LABS: Calcium 8.8 MG/DL (8.5-10.1); Osmolality,Calculated 291.1 MOS/KG (273-304); Potassium 4.5 MMOL/L (3.5-5.1)
[2017-10-17] MEDS: SODIUM CHLORIDE 0.9% 1,000 ML IV SCH (04:20)
[2017-10-17] MEDS: SERTRALINE 50 MG TABLET PO SCH (08:57)
[2017-10-17] MEDS: PROCHLORPERAZINE 10 MG TABLET PO SCH (08:57)
[2017-10-17] MEDS: ASPIRIN EC 81 MG TABLET PO SCH (08:57)
[2017-10-17] MEDS: HEPARIN 5,000 UNIT/1 ML VIAL SUBCUT SCH (08:57)
[2017-10-17] MEDS: GABAPENTIN 100 MG CAPSULE PO SCH (08:57)
[2017-10-17] MEDS: ACETIC ACID 0.25% IRRIGATION 1,000 ML BOTTLE IRRIG SCH (09:47)
[2017-10-17] MEDS: SODIUM HYPOCHLORITE 0.25% IRRIG 473 ML BOTTLE TOP SCH (09:48)
[2017-10-17] MEDS: SKIN HEALING OINT (AQUAPHOR) 50 GM TUBE TOP SCH (09:48)
[2017-10-17 11:51] VITALS: BP 134/69
== END 2017-10-17 14:45 | disposition home health service (06) | DRG 682 ==
LOC: EDBD → EDUNIT# → N.ED 11:17 → N.EDINP 14:16 → SUATTDRO 14:16 → N.3E 16:47
PROVIDERS: ADMIT Internal Medicine; ATTEND Internal Medicine

== ENCOUNTER 2017-11-01 20:36 | Inpatient (IN) ==
[2017-11-01] MEDS ORDERED: SODIUM CHLORIDE 0.9% 1,000 ML IV STA (22:36)
[2017-11-02 00:34] LABS: Basophils % 0.9 % (0.0-0.8); Eosinophils % 0.9 % (0.00-10.9); Hematocrit 34.8 VOL% (35.7-47.0); Hemoglobin 11.2 GM/DL (12.0-16.0); Immature Granulocytes % 1.2 %; Immature Granulocytes Absolute 0.05 #; Lymphocytes # 0.7 10*3/uL (1.4-4.0); Lymphocytes % 16.6 % (21.3-54.2); Mean Corpuscular HGB Conc 32.2 GM/DL (32-36); Mean Corpuscular Hemoglobin 30 PG (27-34); Mean Corpuscular Volume 92.3 FL (87-102); Mean Platelet Volume 9.2 FL (9.6-12.0); Monocytes # 0.5 10*3/uL (0.11-0.8); Monocytes % 11.7 % (1.7-12.7); NRBC # 0.05 10*3/uL; Neutrophils % 68.7 % (38.7-73.9); Platelet Count 385 T/CUMM (130-400); Red Blood Count 3.77 MC/CUMM (3.8-5.5); Red Cell Distribution Width 14.9 % (9.3-17.3); White Blood Count 4.3 T/CUMM (4-12)
[2017-11-02 01:06] LABS: Albumin 3.7 G/DL (3.4-5.0); Bilirubin,Total 0.4 MG/DL (0.2-1.0); Calcium 9.8 MG/DL (8.5-10.1); Osmolality,Calculated 303.4 MOS/KG (273-304); Potassium 5.8 MMOL/L (3.5-5.1); Total Protein 8.4 G/DL (6.4-8.3)
[2017-11-02] MEDS ORDERED: SODIUM CHLORIDE 0.9% 1,000 ML IV STA (01:24)
[2017-11-02] MEDS ORDERED: ACETAMINOPHEN 325 MG TABLET PO PRN (04:06)
[2017-11-02] MEDS ORDERED: GLUCAGON 1 MG VIAL IM PRN (04:06)
[2017-11-02] MEDS ORDERED: ONDANSETRON 4 MG/2 ML VIAL IV PRN (04:06)
[2017-11-02] MEDS ORDERED: DEXTROSE 50% 25 GM/50 ML VIAL IV PRN (04:06)
[2017-11-02] MEDS: SODIUM CHLORIDE 0.9% 1,000 ML IV SCH ×3 (05:02→18:32)
[2017-11-02 06:17] LABS: Basophils % 0.6 % (0.0-0.8); Eosinophils # 0.1 10*3/uL (0.0-0.87); Eosinophils % 1.3 % (0.00-10.9); Hematocrit 28.4 VOL% (35.7-47.0); Hemoglobin 9.2 GM/DL (12.0-16.0); Immature Granulocytes % 0.9 %; Immature Granulocytes Absolute 0.06 #; Lymphocytes # 0.7 10*3/uL (1.4-4.0); Lymphocytes % 11.4 % (21.3-54.2); Mean Corpuscular HGB Conc 32.4 GM/DL (32-36); Mean Corpuscular Hemoglobin 30 PG (27-34); Mean Corpuscular Volume 91.6 FL (87-102); Mean Platelet Volume 9.2 FL (9.6-12.0); NRBC # 0.07 10*3/uL; Neutrophils # 4.5 10*3/uL (1.4-7.4); Neutrophils % 70.8 % (38.7-73.9); Platelet Count 316 T/CUMM (130-400); Red Cell Distribution Width 15.1 % (9.3-17.3); White Blood Count 6.3 T/CUMM (4-12)
[2017-11-02 06:39] LABS: Albumin 2.8 G/DL (3.4-5.0); Bilirubin,Total 0.6 MG/DL (0.2-1.0); Osmolality,Calculated 309.5 MOS/KG (273-304); Potassium 4.8 MMOL/L (3.5-5.1); Total Protein 6.5 G/DL (6.4-8.3)
[2017-11-02 06:45] LABS: Band Neutrophils 1 % (0-10); Eosinophils 3 % (0-10); Hypochromasia 1+; Lymphocytes 12 % (20-55); Ovalocytes Slight; Platelet Estimate Adequate; Segmented Neutrophils 73 % (50-85); Total Cells Counted 100
[2017-11-02] MEDS ORDERED: MAGNESIUM SULF RIDER 4 GM in PREMIX 1 EACH IV PRN (08:37)
[2017-11-02] MEDS: INSULIN LISPRO 100 UNIT/ML SUBCUT SCH ×4 (09:40→22:27)
[2017-11-02] MEDS: MAGNESIUM SULF RIDER 2 GM in PREMIX 1 EACH IV PRN ×2 (09:59→12:27)
[2017-11-02] MEDS ORDERED: PROMETHAZINE 25 MG TABLET PO PRN (11:45)
[2017-11-02] MEDS ORDERED: ONDANSETRON 4 MG TABLET PO PRN (11:45)
[2017-11-02] MEDS: SERTRALINE 50 MG TABLET PO SCH (12:28)
[2017-11-02] MEDS: GABAPENTIN 100 MG CAPSULE PO SCH ×2 (12:28→21:17)
[2017-11-02] MEDS: ASPIRIN EC 81 MG TABLET PO SCH (12:28)
[2017-11-02] MEDS: SCOPOLAMINE 1.5 MG PATCH TRANSDERM SCH (12:29)
[2017-11-02] MEDS ORDERED: TUBERCULIN SKIN TEST 0.1 ML SYRINGE INTRADERM ONE (13:57)
[2017-11-03] MEDS: SODIUM CHLORIDE 0.9% 1,000 ML IV SCH ×6 (04:23→20:23)
[2017-11-03] MEDS: PANTOPRAZOLE 40 MG TABLET PO SCH (06:52)
[2017-11-03 07:04] LABS: Calcium 7.6 MG/DL (8.5-10.1); Potassium 4.2 MMOL/L (3.5-5.1)
[2017-11-03] MEDS: SERTRALINE 50 MG TABLET PO SCH (08:22)
[2017-11-03] MEDS: GABAPENTIN 100 MG CAPSULE PO SCH ×2 (08:22→20:23)
[2017-11-03] MEDS: ASPIRIN EC 81 MG TABLET PO SCH (08:22)
[2017-11-03] MEDS: INSULIN LISPRO 100 UNIT/ML SUBCUT SCH ×4 (10:38→20:23)
[2017-11-04] MEDS: SODIUM CHLORIDE 0.9% 1,000 ML IV SCH ×4 (01:47→22:18)
[2017-11-04] MEDS: PANTOPRAZOLE 40 MG TABLET PO SCH (05:34)
[2017-11-04] MEDS: INSULIN LISPRO 100 UNIT/ML SUBCUT SCH ×4 (08:40→20:04)
[2017-11-04 08:46] LABS: Basophils % 0.8 % (0.0-0.8); Eosinophils # 0.2 10*3/uL (0.0-0.87); Eosinophils % 2.8 % (0.00-10.9); Hematocrit 25.7 VOL% (35.7-47.0); Hemoglobin 8.2 GM/DL (12.0-16.0); Immature Granulocytes % 1.1 %; Immature Granulocytes Absolute 0.06 #; Lymphocytes # 0.7 10*3/uL (1.4-4.0); Lymphocytes % 13.9 % (21.3-54.2); Mean Corpuscular HGB Conc 31.9 GM/DL (32-36); Mean Corpuscular Hemoglobin 30 PG (27-34); Mean Corpuscular Volume 93.5 FL (87-102); Mean Platelet Volume 9.3 FL (9.6-12.0); Monocytes # 0.5 10*3/uL (0.11-0.8); Monocytes % 9.6 % (1.7-12.7); NRBC # 0.12 10*3/uL; Neutrophils # 3.8 10*3/uL (1.4-7.4); Neutrophils % 71.8 % (38.7-73.9); Platelet Count 258 T/CUMM (130-400); Red Blood Count 2.75 MC/CUMM (3.8-5.5); Red Cell Distribution Width 15.8 % (9.3-17.3); White Blood Count 5.3 T/CUMM (4-12)
[2017-11-04 09:05] LABS: Calcium 7.8 MG/DL (8.5-10.1); Osmolality,Calculated 305.6 MOS/KG (273-304); Potassium 3.6 MMOL/L (3.5-5.1)
[2017-11-04] MEDS: GABAPENTIN 100 MG CAPSULE PO SCH ×2 (09:41→20:04)
[2017-11-04] MEDS: ASPIRIN EC 81 MG TABLET PO SCH (09:41)
[2017-11-04] MEDS: SERTRALINE 50 MG TABLET PO SCH (09:41)
[2017-11-05] MEDS: SODIUM CHLORIDE 0.9% 1,000 ML IV SCH (05:22)
[2017-11-05 06:27] LABS: Calcium 7.9 MG/DL (8.5-10.1); Osmolality,Calculated 304.3 MOS/KG (273-304); Potassium 3.6 MMOL/L (3.5-5.1)
[2017-11-05] MEDS: PANTOPRAZOLE 40 MG TABLET PO SCH (06:41)
[2017-11-05] MEDS ORDERED: POTASSIUM CHLORIDE 20 MEQ TABLET PO ONE (07:56)
[2017-11-05] MEDS: SODIUM CHLORIDE 23.4% CONC INJ 38.5 MEQ, SODIUM BICARB INJ 50 MEQ in STERILE WATER INJ ... IV SCH ×2 (09:32→17:42)
[2017-11-05] MEDS: SCOPOLAMINE 1.5 MG PATCH TRANSDERM SCH (09:45)
[2017-11-05] MEDS: GABAPENTIN 100 MG CAPSULE PO SCH ×2 (09:46→21:38)
[2017-11-05] MEDS: ASPIRIN EC 81 MG TABLET PO SCH (09:46)
[2017-11-05] MEDS: SERTRALINE 50 MG TABLET PO SCH (09:46)
[2017-11-05] MEDS: INSULIN LISPRO 100 UNIT/ML SUBCUT SCH ×4 (09:46→23:35)
[2017-11-06] MEDS: SODIUM CHLORIDE 23.4% CONC INJ 38.5 MEQ, SODIUM BICARB INJ 50 MEQ in STERILE WATER INJ ... IV SCH ×3 (02:51→20:52)
[2017-11-06] MEDS: PANTOPRAZOLE 40 MG TABLET PO SCH (05:32)
[2017-11-06 06:07] LABS: Basophils # 0.1 10*3/uL (0.0-0.2); Basophils % 0.9 % (0.0-0.8); Eosinophils # 0.2 10*3/uL (0.0-0.87); Eosinophils % 3.3 % (0.00-10.9); Hematocrit 23.2 VOL% (35.7-47.0); Hemoglobin 7.7 GM/DL (12.0-16.0); Immature Granulocytes % 0.9 %; Immature Granulocytes Absolute 0.05 #; Lymphocytes # 1.1 10*3/uL (1.4-4.0); Lymphocytes % 19.3 % (21.3-54.2); Mean Corpuscular HGB Conc 33.2 GM/DL (32-36); Mean Corpuscular Hemoglobin 29 PG (27-34); Mean Corpuscular Volume 88.5 FL (87-102); Mean Platelet Volume 9.8 FL (9.6-12.0); Monocytes # 0.5 10*3/uL (0.11-0.8); Monocytes % 8.7 % (1.7-12.7); Neutrophils # 3.9 10*3/uL (1.4-7.4); Neutrophils % 66.9 % (38.7-73.9); Platelet Count 247 T/CUMM (130-400); Red Blood Count 2.62 MC/CUMM (3.8-5.5); Red Cell Distribution Width 15.8 % (9.3-17.3); White Blood Count 5.8 T/CUMM (4-12)
[2017-11-06 06:21] LABS: Calcium 7.6 MG/DL (8.5-10.1); Potassium 3.2 MMOL/L (3.5-5.1)
[2017-11-06] MEDS: INSULIN LISPRO 100 UNIT/ML SUBCUT SCH ×4 (07:49→21:54)
[2017-11-06] MEDS: ASPIRIN EC 81 MG TABLET PO SCH (08:13)
[2017-11-06] MEDS: GABAPENTIN 100 MG CAPSULE PO SCH ×3 (08:13→22:04)
[2017-11-06] MEDS: POTASSIUM CHLORIDE 20 MEQ TABLET PO SCH ×4 (08:13→18:33)
[2017-11-06] MEDS: SERTRALINE 50 MG TABLET PO SCH (08:13)
[2017-11-07] MEDS: PANTOPRAZOLE 40 MG TABLET PO SCH (05:47)
[2017-11-07] MEDS: INSULIN LISPRO 100 UNIT/ML SUBCUT SCH ×4 (09:05→21:24)
[2017-11-07 09:06] LABS: Basophils # 0.1 10*3/uL (0.0-0.2); Basophils % 0.8 % (0.0-0.8); Eosinophils # 0.1 10*3/uL (0.0-0.87); Eosinophils % 1.4 % (0.00-10.9); Hematocrit 22.8 VOL% (35.7-47.0); Hemoglobin 7.6 GM/DL (12.0-16.0); Immature Granulocytes % 0.9 %; Immature Granulocytes Absolute 0.06 #; Lymphocytes # 0.7 10*3/uL (1.4-4.0); Lymphocytes % 10.4 % (21.3-54.2); Mean Corpuscular HGB Conc 33.3 GM/DL (32-36); Mean Corpuscular Hemoglobin 30 PG (27-34); Mean Corpuscular Volume 89.4 FL (87-102); Mean Platelet Volume 9.3 FL (9.6-12.0); Monocytes # 0.5 10*3/uL (0.11-0.8); Monocytes % 7.6 % (1.7-12.7); NRBC # 0.17 10*3/uL; Neutrophils # 5.2 10*3/uL (1.4-7.4); Neutrophils % 78.9 % (38.7-73.9); Platelet Count 211 T/CUMM (130-400); Red Blood Count 2.55 MC/CUMM (3.8-5.5); Red Cell Distribution Width 15.3 % (9.3-17.3); White Blood Count 6.5 T/CUMM (4-12)
[2017-11-07 09:27] LABS: Alanine Aminotransferase 17 U/L (13-56); Alkaline Phosphatase 82 U/L (45-117); Aspartate Amino Transferase 17 U/L (0-37); Bilirubin,Total < 0.39 MG/DL (0.2-1.0); Blood Urea Nitrogen 20 MG/DL (7-18); Calcium 7.1 MG/DL (8.5-10.1); Glucose 110 MG/DL (74-106); Potassium 3.6 MMOL/L (3.5-5.1); Sodium 143 MMOL/L (136-145); Total Protein 4.9 G/DL (6.4-8.3)
[2017-11-07] MEDS: ASPIRIN EC 81 MG TABLET PO SCH (10:37)
[2017-11-07] MEDS: GABAPENTIN 100 MG CAPSULE PO SCH ×2 (10:37→21:24)
[2017-11-07] MEDS: SERTRALINE 50 MG TABLET PO SCH (10:37)
[2017-11-07] MEDS: SODIUM CHLORIDE 23.4% CONC INJ 38.5 MEQ, SODIUM BICARB INJ 50 MEQ in STERILE WATER INJ ... IV SCH ×3 (14:43→22:38)
[2017-11-07] MEDS: MAGNESIUM SULF RIDER 2 GM in PREMIX 1 EACH IV PRN (14:45)
[2017-11-07] MEDS ORDERED: TOLTERODINE LA 2 MG CAPSULE PO SCH (21:00)
[2017-11-07] MEDS: PROCHLORPERAZINE 10 MG TABLET PO SCH (21:24)
[2017-11-08] MEDS: SODIUM CHLORIDE 23.4% CONC INJ 38.5 MEQ, SODIUM BICARB INJ 50 MEQ in STERILE WATER INJ ... IV SCH ×3 (05:38→16:15)
[2017-11-08] MEDS: PANTOPRAZOLE 40 MG TABLET PO SCH (05:49)
[2017-11-08] MEDS: INSULIN LISPRO 100 UNIT/ML SUBCUT SCH ×5 (07:16→20:52)
[2017-11-08 09:49] LABS: Basophils % 0.5 % (0.0-0.8); Eosinophils # 0.1 10*3/uL (0.0-0.87); Eosinophils % 1.2 % (0.00-10.9); Hemoglobin 7.9 GM/DL (12.0-16.0); Immature Granulocytes % 1.1 %; Immature Granulocytes Absolute 0.07 #; Lymphocytes # 0.5 10*3/uL (1.4-4.0); Lymphocytes % 8.2 % (21.3-54.2); Mean Corpuscular HGB Conc 32.9 GM/DL (32-36); Mean Corpuscular Hemoglobin 29 PG (27-34); Mean Corpuscular Volume 89.2 FL (87-102); Mean Platelet Volume 9.9 FL (9.6-12.0); Monocytes # 0.5 10*3/uL (0.11-0.8); Monocytes % 7.1 % (1.7-12.7); NRBC # 0.06 10*3/uL; Neutrophils # 5.4 10*3/uL (1.4-7.4); Neutrophils % 81.9 % (38.7-73.9); Platelet Count 227 T/CUMM (130-400); Red Blood Count 2.69 MC/CUMM (3.8-5.5); Red Cell Distribution Width 15.3 % (9.3-17.3); White Blood Count 6.6 T/CUMM (4-12)
[2017-11-08] MEDS: GABAPENTIN 100 MG CAPSULE PO SCH ×2 (10:19→21:00)
[2017-11-08] MEDS: PROCHLORPERAZINE 10 MG TABLET PO SCH ×3 (10:19→20:53)
[2017-11-08] MEDS: ASPIRIN EC 81 MG TABLET PO SCH (10:19)
[2017-11-08 10:20] LABS: Calcium 7.4 MG/DL (8.5-10.1); Osmolality,Calculated 280.4 MOS/KG (273-304); Potassium 3.7 MMOL/L (3.5-5.1)
[2017-11-08] MEDS: SCOPOLAMINE 1.5 MG PATCH TRANSDERM SCH (10:20)
[2017-11-08] MEDS: SERTRALINE 50 MG TABLET PO SCH (10:22)
[2017-11-08] MEDS ORDERED: TAMSULOSIN 0.4 MG CAPSULE PO SCH (21:00)
[2017-11-09] MEDS: SODIUM CHLORIDE 23.4% CONC INJ 38.5 MEQ, SODIUM BICARB INJ 50 MEQ in STERILE WATER INJ ... IV SCH ×2 (01:46→09:09)
[2017-11-09] MEDS: PANTOPRAZOLE 40 MG TABLET PO SCH (06:20)
[2017-11-09] MEDS: GABAPENTIN 100 MG CAPSULE PO SCH (08:52)
[2017-11-09] MEDS: SERTRALINE 50 MG TABLET PO SCH (08:52)
[2017-11-09] MEDS: PROCHLORPERAZINE 10 MG TABLET PO SCH (08:52)
[2017-11-09] MEDS: ASPIRIN EC 81 MG TABLET PO SCH (08:52)
[2017-11-09] MEDS: INSULIN LISPRO 100 UNIT/ML SUBCUT SCH ×2 (09:09→11:41)
[2017-11-09 11:43] VITALS: BP 134/77
== END 2017-11-09 14:20 | disposition home health service (06) | DRG 682 ==
LOC: N.ED 20:36 → N.EDINP 11-02 02:12 → SUATTDRO 11-02 02:12 → N.EDINP 11-02 03:50 → N.5E 11-02 04:05
PROVIDERS: ADMIT Internal Medicine; ATTEND Hospitalist

== ENCOUNTER 2017-12-05 20:09 | Inpatient (IN) ==
[2017-12-05] MEDS ORDERED: ONDANSETRON 4 MG/2 ML VIAL IV STA (20:43)
[2017-12-05] MEDS ORDERED: SODIUM CHLORIDE 0.9% 1,000 ML IV STA (20:43)
[2017-12-05] MEDS ORDERED: PANTOPRAZOLE 40 MG VIAL IV STA (20:43)
[2017-12-05 21:38] LABS: Basophils # 0.1 10*3/uL (0.0-0.2); Basophils % 0.5 % (0.0-0.8); Eosinophils % 0.3 % (0.00-10.9); Hematocrit 35.2 VOL% (35.7-47.0); Hemoglobin 11.5 GM/DL (12.0-16.0); Immature Granulocytes % 0.6 %; Immature Granulocytes Absolute 0.06 #; Lymphocytes # 0.6 10*3/uL (1.4-4.0); Lymphocytes % 5.9 % (21.3-54.2); Mean Corpuscular HGB Conc 32.7 GM/DL (32-36); Mean Corpuscular Hemoglobin 30 PG (27-34); Mean Corpuscular Volume 90.5 FL (87-102); Mean Platelet Volume 8.8 FL (9.6-12.0); Monocytes # 0.6 10*3/uL (0.11-0.8); Monocytes % 5.7 % (1.7-12.7); Neutrophils # 8.9 10*3/uL (1.4-7.4); Platelet Count 362 T/CUMM (130-400); Red Blood Count 3.89 MC/CUMM (3.8-5.5); Red Cell Distribution Width 17.7 % (9.3-17.3); White Blood Count 10.3 T/CUMM (4-12)
[2017-12-05 21:53] LABS: Bilirubin,Total 0.6 MG/DL (0.2-1.0); Osmolality,Calculated 293.2 MOS/KG (273-304); Potassium 5.1 MMOL/L (3.5-5.1); Total Protein 9.2 G/DL (6.4-8.3)
[2017-12-05 21:55] LABS: CKMB % 9.6 %; Troponin I 0.103 NG/ML (0.00-0.045)
[2017-12-05] MEDS ORDERED: SODIUM BICARBONATE 50 MEQ/50 ML VIAL IV STA ×2 (22:16→22:51)
[2017-12-05] MEDS ORDERED: SODIUM BICARBONATE 50 MEQ/50 ML SYRINGE IV ONE ×2 (22:43→23:20)
[2017-12-05 22:48] LABS: ABG Base Excess -23.7 MMOL/L (-2.5-2.5); ABG HCO3 7.7 MMOL/L (20-26); ABG TCO2 4.8 MMOL/L (23-27)
[2017-12-05 22:50] LABS: ABG PCO2 16.5 MM HG (35-48); ABG PH 7.096 (7.35-7.45)
[2017-12-05] MEDS ORDERED: SODIUM CHLORIDE 0.9% 1,000 ML IV SCH (23:45)
[2017-12-05] MEDS ORDERED: ACETAMINOPHEN 325 MG TABLET PO PRN (23:53)
[2017-12-05] MEDS ORDERED: diphenhydrAMINE CAP 25 MG CAPSULE PO PRN (23:53)
[2017-12-05] MEDS ORDERED: ONDANSETRON 4 MG/2 ML VIAL IV PRN (23:53)
[2017-12-06] MEDS ORDERED: PROMETHAZINE 25 MG TABLET PO PRN (00:16)
[2017-12-06] MEDS ORDERED: SODIUM CHLORIDE 0.9% 1,000 ML IV ONE (00:22)
[2017-12-06] MEDS ORDERED: SODIUM BICARB INJ 150 MEQ in DEXTROSE 5% 850 ML IV SCH (01:30)
[2017-12-06 02:09] LABS: Lactic Acid 1.8 MMOL/L (0.4-2.0)
[2017-12-06 03:13] LABS: ABG Base Excess -17.8 MMOL/L (-2.5-2.5); ABG Oxygen Saturation 98.9 % (95-100); ABG PH 7.231 (7.35-7.45); ABG TCO2 8.2 MMOL/L (23-27); Allen Test Positive; Pt O2 Delivery Device Room Air
[2017-12-06 03:14] LABS: ABG PCO2 20.6 MM HG (35-48)
[2017-12-06] MEDS: TAMSULOSIN 0.4 MG CAPSULE PO SCH ×2 (03:18→22:27)
[2017-12-06] MEDS: HEPARIN DRIP 25,000 UNITS/500 ML PREMIX IV SCH (03:23)
[2017-12-06 05:45] LABS: Amorphous Crystals,Urine Occasional /HPF (Few); Apearance,Urine CLOUDY (Clear); Bacteria,Urine Occasional /HPF (Few); Bilirubin,Urine Negative (Negative); Blood, Urine Large mg/dL (Negative); Glucose,Urine (UA) Negative (Negative); Hyaline Casts,Urine 4 /LPF (0-3); Ketones,Urine Negative (Negative); Mucus,Urine Occasional /LPF (Occasional); Nitrite,Urine Negative (Negative); Protein,Urine 30 MG/DL; RBC,Urine 45 /HPF (0-4); Squamous Epithelial Cell,Urine Occasional /HPF (0-10); Urine Color Yellow (Yellow); Urine Urobilinogen < 2.0 EU/DL (0.2-1.0); WBC,Urine 15 /HPF (0-6)
[2017-12-06 07:59] LABS: Basophils % 0.4 % (0.0-0.8); Eosinophils # 0.1 10*3/uL (0.0-0.87); Eosinophils % 0.8 % (0.00-10.9); Hematocrit 24.5 VOL% (35.7-47.0); Immature Granulocytes % 0.8 %; Immature Granulocytes Absolute 0.07 #; Lymphocytes % 11.1 % (21.3-54.2); Mean Corpuscular HGB Conc 33.5 GM/DL (32-36); Mean Corpuscular Hemoglobin 30 PG (27-34); Mean Corpuscular Volume 89.1 FL (87-102); Monocytes # 0.8 10*3/uL (0.11-0.8); Monocytes % 9.1 % (1.7-12.7); NRBC # 0.43 10*3/uL; Neutrophils # 7.1 10*3/uL (1.4-7.4); Neutrophils % 77.8 % (38.7-73.9); Red Cell Distribution Width 17.1 % (9.3-17.3); White Blood Count 9.2 T/CUMM (4-12)
[2017-12-06 08:04] LABS: Hemoglobin 8.2 GM/DL (12.0-16.0); Platelet Count 274 T/CUMM (130-400); Red Blood Count 2.75 MC/CUMM (3.8-5.5)
[2017-12-06 08:13] LABS: Bilirubin,Total 0.6 MG/DL (0.2-1.0); Calcium 8.4 MG/DL (8.5-10.1); Osmolality,Calculated 297.7 MOS/KG (273-304); Potassium 3.4 MMOL/L (3.5-5.1); Total Protein 6.6 G/DL (6.4-8.3)
[2017-12-06 08:24] LABS: % Iron Saturation 24.7 % (18-50); Ferritin 1413.2 ng/ml (8-252)
[2017-12-06 08:41] LABS: Folate 13.4 NG/ML (5.4-24.0)
[2017-12-06] MEDS ORDERED: ASPIRIN EC 81 MG TABLET PO SCH (09:00)
[2017-12-06] MEDS: SCOPOLAMINE 1.5 MG PATCH TRANSDERM SCH (12:17)
[2017-12-06] MEDS: PROCHLORPERAZINE 10 MG TABLET PO SCH ×3 (12:18→22:26)
[2017-12-06] MEDS: PANTOPRAZOLE 40 MG TABLET PO SCH (12:19)
[2017-12-06] MEDS: GABAPENTIN 100 MG CAPSULE PO SCH ×2 (12:20→22:23)
[2017-12-06] MEDS: ASPIRIN 325 MG TABLET PO SCH (12:20)
[2017-12-06] MEDS: SERTRALINE 50 MG TABLET PO SCH (12:20)
[2017-12-06] MEDS ORDERED: HEPARIN 5,000 UNIT/1 ML VIAL IV ONE (13:34)
[2017-12-06] MEDS ORDERED: MAGNESIUM SULF RIDER 2 GM in PREMIX 1 EACH IV PRN ×2 (14:26→14:45)
[2017-12-06] MEDS ORDERED: MAGNESIUM SULF RIDER 4 GM in PREMIX 1 EACH IV PRN (14:45)
[2017-12-06] MEDS ORDERED: MAGNESIUM SULF RIDER 4 GM in PREMIX 1 EACH IV ONE (15:00)
[2017-12-06] MEDS: POTASSIUM CHLORIDE IV SCH (16:24)
[2017-12-06] MEDS: SODIUM BICARB IV SCH (16:24)
[2017-12-06] MEDS: DEXTROSE 5% IV SCH (16:24)
[2017-12-06] MEDS ORDERED: POTASSIUM CHLORIDE 20 MEQ/15 ML UDCUP PO ONE (17:27)
[2017-12-07 05:05] LABS: Basophils # 0.1 10*3/uL (0.0-0.2); Basophils % 0.6 % (0.0-0.8); Eosinophils # 0.4 10*3/uL (0.0-0.87); Eosinophils % 4.6 % (0.00-10.9); Hematocrit 21.2 VOL% (35.7-47.0); Hemoglobin 7.1 GM/DL (12.0-16.0); Immature Granulocytes % 0.6 %; Immature Granulocytes Absolute 0.05 #; Lymphocytes # 1.5 10*3/uL (1.4-4.0); Lymphocytes % 17.4 % (21.3-54.2); Mean Corpuscular HGB Conc 33.5 GM/DL (32-36); Mean Corpuscular Hemoglobin 30 PG (27-34); Mean Corpuscular Volume 88.7 FL (87-102); Mean Platelet Volume 9.8 FL (9.6-12.0); Monocytes # 0.8 10*3/uL (0.11-0.8); Monocytes % 8.9 % (1.7-12.7); NRBC # 0.78 10*3/uL; Neutrophils # 5.7 10*3/uL (1.4-7.4); Neutrophils % 67.9 % (38.7-73.9); Platelet Count 262 T/CUMM (130-400); Red Blood Count 2.39 MC/CUMM (3.8-5.5); Red Cell Distribution Width 16.9 % (9.3-17.3); White Blood Count 8.4 T/CUMM (4-12)
[2017-12-07 05:30] LABS: Potassium 3.9 MMOL/L (3.5-5.1)
[2017-12-07 05:34] LABS: Collection Time,Urine 24 HOURS; Total Protein 24 Hr Ur Result 130 MG/24HR (0-149.1); Total Volume,Urine 200 ML (400-2000)
[2017-12-07 05:35] LABS: Collection Time,Urine 24 HOURS; Total Volume,Urine 200 ML (400-2000); Urea Nitrogen 24 Hr Ur Result 1 G/24HR (12-20)
[2017-12-07 05:37] LABS: Collection Time,Urine 24 HOURS; Sodium 24 Hr Ur Result < 5 MMOL/L (40-220); Total Volume,Urine 200 ML (400-2000)
[2017-12-07 05:38] LABS: Creatinine 24 Hr Urine Result 0.28 G/24HR (0.60-1.80)
[2017-12-07 05:48] LABS: Creatinine 24 Hr Urine Result 0.28 G/24HR (0.60-1.80); Creatinine Clearance Urine 5.32 ML/MIN (70-115)
[2017-12-07] MEDS: SODIUM BICARB IV SCH (09:15)
[2017-12-07] MEDS: DEXTROSE 5% IV SCH (09:15)
[2017-12-07] MEDS: POTASSIUM CHLORIDE IV SCH (09:15)
[2017-12-07] MEDS ORDERED: POTASSIUM CHLORIDE IV SCH (09:30)
[2017-12-07] MEDS ORDERED: SODIUM BICARB IV SCH (09:30)
[2017-12-07] MEDS ORDERED: DEXTROSE 5% IV SCH (09:30)
[2017-12-07] MEDS: SERTRALINE 50 MG TABLET PO SCH (09:44)
[2017-12-07] MEDS: PANTOPRAZOLE 40 MG TABLET PO SCH (09:44)
[2017-12-07] MEDS: PROCHLORPERAZINE 10 MG TABLET PO SCH ×3 (09:44→21:23)
[2017-12-07] MEDS: ASPIRIN 325 MG TABLET PO SCH (09:44)
[2017-12-07] MEDS: GABAPENTIN 100 MG CAPSULE PO SCH (09:45)
[2017-12-07] MEDS ORDERED: SODIUM CHLORIDE 0.9% 1,000 ML IV PRN ×2 (10:00→10:55)
[2017-12-07] MEDS: TAMSULOSIN 0.4 MG CAPSULE PO SCH (21:22)
[2017-12-08] MEDS: HEPARIN DRIP 25,000 UNITS/500 ML PREMIX IV SCH (01:40)
[2017-12-08 05:28] LABS: Basophils % 0.5 % (0.0-0.8); Eosinophils # 0.4 10*3/uL (0.0-0.87); Eosinophils % 4.3 % (0.00-10.9); Hematocrit 30.2 VOL% (35.7-47.0); Immature Granulocytes % 0.5 %; Immature Granulocytes Absolute 0.04 #; Lymphocytes # 1.1 10*3/uL (1.4-4.0); Mean Corpuscular HGB Conc 33.4 GM/DL (32-36); Mean Corpuscular Hemoglobin 30 PG (27-34); Mean Corpuscular Volume 88.3 FL (87-102); Mean Platelet Volume 9.2 FL (9.6-12.0); Monocytes # 0.9 10*3/uL (0.11-0.8); Monocytes % 10.1 % (1.7-12.7); NRBC # 0.71 10*3/uL; Neutrophils % 71.6 % (38.7-73.9); Platelet Count 224 T/CUMM (130-400); Red Cell Distribution Width 16.5 % (9.3-17.3); White Blood Count 8.4 T/CUMM (4-12)
[2017-12-08 05:32] LABS: Hemoglobin 10.1 GM/DL (12.0-16.0); Red Blood Count 3.42 MC/CUMM (3.8-5.5)
[2017-12-08 05:51] LABS: Calcium 7.7 MG/DL (8.5-10.1); Osmolality,Calculated 293.4 MOS/KG (273-304); Potassium 3.6 MMOL/L (3.5-5.1)
[2017-12-08] MEDS: SERTRALINE 50 MG TABLET PO SCH (09:35)
[2017-12-08] MEDS: ASPIRIN 325 MG TABLET PO SCH (09:35)
[2017-12-08] MEDS: PROCHLORPERAZINE 10 MG TABLET PO SCH ×3 (09:35→20:16)
[2017-12-08] MEDS: PANTOPRAZOLE 40 MG TABLET PO SCH (09:35)
[2017-12-08] MEDS: SODIUM CHLORIDE 0.9% 1,000 ML IV SCH (16:53)
[2017-12-08] MEDS: TAMSULOSIN 0.4 MG CAPSULE PO SCH (20:15)
[2017-12-08] MEDS: COLESTIPOL 1 GM TABLET PO SCH (20:15)
[2017-12-09] MEDS: SODIUM CHLORIDE 0.9% 1,000 ML IV SCH ×3 (05:24→20:46)
[2017-12-09 06:10] LABS: Basophils % 0.4 % (0.0-0.8); Eosinophils # 0.5 10*3/uL (0.0-0.87); Eosinophils % 4.8 % (0.00-10.9); Hematocrit 31.3 VOL% (35.7-47.0); Hemoglobin 10.4 GM/DL (12.0-16.0); Immature Granulocytes % 0.5 %; Immature Granulocytes Absolute 0.05 #; Lymphocytes % 9.5 % (21.3-54.2); Mean Corpuscular HGB Conc 33.2 GM/DL (32-36); Mean Corpuscular Hemoglobin 30 PG (27-34); Mean Corpuscular Volume 88.7 FL (87-102); Mean Platelet Volume 9.5 FL (9.6-12.0); Monocytes # 0.8 10*3/uL (0.11-0.8); Monocytes % 8.1 % (1.7-12.7); NRBC # 0.47 10*3/uL; Neutrophils % 76.7 % (38.7-73.9); Platelet Count 225 T/CUMM (130-400); Red Blood Count 3.53 MC/CUMM (3.8-5.5); Red Cell Distribution Width 17.2 % (9.3-17.3); White Blood Count 10.4 T/CUMM (4-12)
[2017-12-09 06:32] LABS: Calcium 8.4 MG/DL (8.5-10.1); Osmolality,Calculated 287.5 MOS/KG (273-304); Potassium 4.4 MMOL/L (3.5-5.1)
[2017-12-09] MEDS: PANTOPRAZOLE 40 MG TABLET PO SCH (09:28)
[2017-12-09] MEDS: SERTRALINE 50 MG TABLET PO SCH (09:28)
[2017-12-09] MEDS: COLESTIPOL 1 GM TABLET PO SCH ×2 (09:28→20:46)
[2017-12-09] MEDS: PROCHLORPERAZINE 10 MG TABLET PO SCH ×3 (09:28→20:46)
[2017-12-09] MEDS: ASPIRIN 325 MG TABLET PO SCH (09:29)
[2017-12-09] MEDS: SCOPOLAMINE 1.5 MG PATCH TRANSDERM SCH (09:30)
[2017-12-09] MEDS: TAMSULOSIN 0.4 MG CAPSULE PO SCH (20:46)
[2017-12-10] MEDS: SODIUM CHLORIDE 0.9% 1,000 ML IV SCH ×2 (04:56→14:10)
[2017-12-10] MEDS: PANTOPRAZOLE 40 MG TABLET PO SCH (10:07)
[2017-12-10] MEDS: ASPIRIN 325 MG TABLET PO SCH (10:07)
[2017-12-10] MEDS: PROCHLORPERAZINE 10 MG TABLET PO SCH ×2 (10:07→17:10)
[2017-12-10] MEDS: COLESTIPOL 1 GM TABLET PO SCH (10:07)
[2017-12-10] MEDS: SERTRALINE 50 MG TABLET PO SCH (10:08)
[2017-12-10 12:21] VITALS: BP 128/61
== END 2017-12-10 15:15 | disposition home health service (06) | DRG 682 ==
LOC: N.ED 20:09 → N.EDINP 23:46 → N.2E 12-06 01:47
PROVIDERS: ADMIT Internal Medicine Geriatric Medicine; ATTEND Internal Medicine Geriatric Medicine

== ENCOUNTER 2017-12-26 09:44 | Inpatient (IN) ==
[2017-12-26] MEDS ORDERED: SODIUM CHLORIDE 0.9% 1,000 ML IV STA (10:17)
[2017-12-26 11:16] LABS: Basophils % 0.4 % (0.0-0.8); Eosinophils % 0.3 % (0.00-10.9); Hematocrit 38.9 VOL% (35.7-47.0); Hemoglobin 12.1 GM/DL (12.0-16.0); Immature Granulocytes % 0.3 %; Immature Granulocytes Absolute 0.02 #; Lymphocytes # 0.6 10*3/uL (1.4-4.0); Lymphocytes % 7.5 % (21.3-54.2); Mean Corpuscular HGB Conc 31.1 GM/DL (32-36); Mean Corpuscular Hemoglobin 29 PG (27-34); Mean Corpuscular Volume 92.4 FL (87-102); Monocytes # 0.7 10*3/uL (0.11-0.8); Monocytes % 9.5 % (1.7-12.7); NRBC # 0.18 10*3/uL; Neutrophils # 6.3 10*3/uL (1.4-7.4); Platelet Count 401 T/CUMM (130-400); Red Blood Count 4.21 MC/CUMM (3.8-5.5); White Blood Count 7.7 T/CUMM (4-12)
[2017-12-26 11:54] LABS: Band Neutrophils 1 % (0-10); Eosinophils 2 % (0-10); Hypochromasia 1+; Lymphocytes 8 % (20-55); Nucleated Red Blood Cells 2 (0-5); Segmented Neutrophils 80 % (50-85); Total Cells Counted 100
[2017-12-26 11:55] LABS: Burr Cells Slight
[2017-12-26 11:56] LABS: Acanthocytes Few; Anisocytosis 1+; Microcytosis 1+; Pappenheimer Bodies 1+; Platelet Estimate Increased
[2017-12-26 11:57] LABS: Howell-Jolly Bodies Slight; Poikilocytosis 1+
[2017-12-26 12:07] LABS: Alanine Aminotransferase 32 U/L (13-56); Albumin 3.2 G/DL (3.4-5.0); Alkaline Phosphatase 113 U/L (45-117); Amylase 154 U/L (25-115); Aspartate Amino Transferase 20 U/L (0-37); Bilirubin,Total < 0.39 MG/DL (0.2-1.0); Blood Urea Nitrogen 61 MG/DL (7-18); CKMB % 12.3 %; Calcium 7.9 MG/DL (8.5-10.1); Glucose 111 MG/DL (74-106); Osmolality,Calculated 292.7 MOS/KG (273-304); Sodium 138 MMOL/L (136-145); Total Protein 7.4 G/DL (6.4-8.3)
[2017-12-26 12:08] LABS: Troponin I 0.046 NG/ML (0.00-0.045)
[2017-12-26 12:50] LABS: Apearance,Urine Clear (Clear); Urine Color Yellow (Yellow); Urine Specific Gravity 1.015 (1.001-1.035)
[2017-12-26 12:51] LABS: Bilirubin,Urine Negative (Negative); Blood, Urine Small mg/dL (Negative); Glucose,Urine (UA) Negative (Negative); Ketones,Urine Negative (Negative); Nitrite,Urine Negative (Negative); Protein,Urine 100 MG/DL; Urine Urobilinogen 0.2 EU/DL (0.2-1.0)
[2017-12-26 12:52] LABS: Bacteria,Urine Few /HPF (Few); Squamous Epithelial Cell,Urine Occasional /HPF (0-10); WBC,Urine 25-30 /HPF (0-6)
[2017-12-26] MEDS ORDERED: traZODone 50 MG TABLET PO PRN (13:55)
[2017-12-26] MEDS ORDERED: MORPHINE 4 MG/1 ML VIAL IV PRN (13:55)
[2017-12-26] MEDS ORDERED: ACETAMINOPHEN 325 MG TABLET PO PRN (13:55)
[2017-12-26] MEDS ORDERED: SODIUM BICARB INJ 100 MEQ in STERILE WATER INJ 1,000 ML IV SCH (14:00)
[2017-12-26] MEDS: cefTRIAXone 1,000 MG in SYRINGE 1 EACH IV SCH (16:46)
[2017-12-26] MEDS: ENOXAPARIN 30 MG/0.3 ML SYRINGE SUBCUT SCH (16:46)
[2017-12-26] MEDS: SODIUM BICARB INJ 150 MEQ in STERILE WATER INJ 1,000 ML IV SCH (17:43)
[2017-12-26] MEDS ORDERED: GABAPENTIN 100 MG CAPSULE PO SCH (21:00)
[2017-12-26] MEDS: TAMSULOSIN 0.4 MG CAPSULE PO SCH (21:32)
[2017-12-26] MEDS: COLESTIPOL 1 GM TABLET PO SCH (21:32)
[2017-12-27] MEDS: SODIUM BICARB INJ 150 MEQ in STERILE WATER INJ 1,000 ML IV SCH ×3 (03:53→16:02)
[2017-12-27 04:29] LABS: Basophils # 0.1 10*3/uL (0.0-0.2); Basophils % 0.8 % (0.0-0.8); Eosinophils # 0.2 10*3/uL (0.0-0.87); Eosinophils % 2.6 % (0.00-10.9); Hematocrit 28.4 VOL% (35.7-47.0); Hemoglobin 9.3 GM/DL (12.0-16.0); Immature Granulocytes % 0.3 %; Immature Granulocytes Absolute 0.02 #; Lymphocytes # 1.3 10*3/uL (1.4-4.0); Lymphocytes % 21.2 % (21.3-54.2); Mean Corpuscular HGB Conc 32.7 GM/DL (32-36); Mean Corpuscular Hemoglobin 29 PG (27-34); Mean Platelet Volume 9.1 FL (9.6-12.0); Monocytes # 0.8 10*3/uL (0.11-0.8); Monocytes % 13.5 % (1.7-12.7); NRBC # 0.24 10*3/uL; Neutrophils # 3.8 10*3/uL (1.4-7.4); Neutrophils % 61.6 % (38.7-73.9); Platelet Count 300 T/CUMM (130-400); Red Blood Count 3.19 MC/CUMM (3.8-5.5); Red Cell Distribution Width 16.6 % (9.3-17.3); White Blood Count 6.1 T/CUMM (4-12)
[2017-12-27 04:48] LABS: Calcium 7.6 MG/DL (8.5-10.1); Potassium 3.4 MMOL/L (3.5-5.1)
[2017-12-27 05:22] LABS: Burr Cells Slight; Eosinophils 4 % (0-10); Hypochromasia 1+; Lymphocytes 24 % (20-55); Nucleated Red Blood Cells 6 (0-5); Ovalocytes Slight; Platelet Estimate Adequate; Segmented Neutrophils 66 % (50-85); Total Cells Counted 100
[2017-12-27 05:23] LABS: Howell-Jolly Bodies Slight; Microcytosis 1+; Pappenheimer Bodies Slight
[2017-12-27] MEDS: COLESTIPOL 1 GM TABLET PO SCH (09:14)
[2017-12-27] MEDS: ASPIRIN EC 81 MG TABLET PO SCH (09:14)
[2017-12-27] MEDS: SERTRALINE 25 MG TABLET PO SCH (09:14)
[2017-12-27] MEDS: PANTOPRAZOLE 40 MG TABLET PO SCH (09:14)
[2017-12-27] MEDS: POTASSIUM CHLORIDE 20 MEQ TABLET PO SCH (12:02)
[2017-12-27] MEDS: ENOXAPARIN 30 MG/0.3 ML SYRINGE SUBCUT SCH (15:59)
[2017-12-27] MEDS: cefTRIAXone 1,000 MG in SYRINGE 1 EACH IV SCH (15:59)
[2017-12-27] MEDS: ONDANSETRON 4 MG/2 ML VIAL IV PRN (17:17)
[2017-12-27] MEDS: CHOLESTYRAMINE 4 GM PACK PO SCH (21:03)
[2017-12-27] MEDS: TAMSULOSIN 0.4 MG CAPSULE PO SCH (21:03)
[2017-12-28] MEDS: SODIUM BICARB INJ 150 MEQ in STERILE WATER INJ 1,000 ML IV SCH ×2 (00:27→14:33)
[2017-12-28 05:25] LABS: Basophils # 0.1 10*3/uL (0.0-0.2); Basophils % 0.9 % (0.0-0.8); Eosinophils # 0.2 10*3/uL (0.0-0.87); Eosinophils % 3.4 % (0.00-10.9); Hematocrit 23.3 VOL% (35.7-47.0); Hemoglobin 7.9 GM/DL (12.0-16.0); Immature Granulocytes % 0.3 %; Immature Granulocytes Absolute 0.02 #; Lymphocytes # 1.4 10*3/uL (1.4-4.0); Lymphocytes % 21.5 % (21.3-54.2); Mean Corpuscular HGB Conc 33.9 GM/DL (32-36); Mean Corpuscular Hemoglobin 29 PG (27-34); Mean Corpuscular Volume 86.6 FL (87-102); Mean Platelet Volume 9.4 FL (9.6-12.0); Monocytes # 0.7 10*3/uL (0.11-0.8); Monocytes % 11.1 % (1.7-12.7); NRBC # 0.32 10*3/uL; Neutrophils % 62.8 % (38.7-73.9); Platelet Count 273 T/CUMM (130-400); Red Blood Count 2.69 MC/CUMM (3.8-5.5); Red Cell Distribution Width 15.9 % (9.3-17.3); White Blood Count 6.4 T/CUMM (4-12)
[2017-12-28 05:37] LABS: Albumin 2.4 G/DL (3.4-5.0); Osmolality,Calculated 285.8 MOS/KG (273-304); Potassium 2.8 MMOL/L (3.5-5.1)
[2017-12-28] MEDS ORDERED: POTASSIUM CHLORIDE RIDER 10 MEQ in PREMIX 1 EACH IV PRN ×2 (08:16→11:09)
[2017-12-28 08:50] LABS: Basophils # 0.1 10*3/uL (0.0-0.2); Basophils % 0.8 % (0.0-0.8); Eosinophils # 0.2 10*3/uL (0.0-0.87); Eosinophils % 2.8 % (0.00-10.9); Hematocrit 24.1 VOL% (35.7-47.0); Hemoglobin 8.3 GM/DL (12.0-16.0); Immature Granulocytes % 0.7 %; Immature Granulocytes Absolute 0.04 #; Lymphocytes # 1.2 10*3/uL (1.4-4.0); Lymphocytes % 20.4 % (21.3-54.2); Mean Corpuscular HGB Conc 34.4 GM/DL (32-36); Mean Corpuscular Hemoglobin 30 PG (27-34); Mean Corpuscular Volume 86.1 FL (87-102); Monocytes # 0.5 10*3/uL (0.11-0.8); NRBC # 0.32 10*3/uL; Neutrophils % 67.3 % (38.7-73.9); Platelet Count 271 T/CUMM (130-400); Red Cell Distribution Width 15.9 % (9.3-17.3)
[2017-12-28 09:12] LABS: Osmolality,Calculated 285.8 MOS/KG (273-304); Potassium 2.6 MMOL/L (3.5-5.1)
[2017-12-28] MEDS: CHOLESTYRAMINE 4 GM PACK PO SCH ×2 (09:19→20:12)
[2017-12-28] MEDS: ASPIRIN EC 81 MG TABLET PO SCH (09:20)
[2017-12-28] MEDS: PANTOPRAZOLE 40 MG TABLET PO SCH (09:20)
[2017-12-28] MEDS: SERTRALINE 25 MG TABLET PO SCH (09:20)
[2017-12-28] MEDS: POTASSIUM CHLORIDE 20 MEQ TABLET PO SCH (09:20)
[2017-12-28] MEDS: ceFAZolin 1,000 MG VIAL IV SCH (09:48)
[2017-12-28] MEDS ORDERED: MAGNESIUM SULF RIDER 4 GM in PREMIX 1 EACH IV PRN (10:36)
[2017-12-28] MEDS: ONDANSETRON 4 MG/2 ML VIAL IV PRN (12:38)
[2017-12-28] MEDS ORDERED: MAGNESIUM SULF RIDER 4 GM in PREMIX 1 EACH IV ONE (14:00)
[2017-12-28] MEDS: POTASSIUM CHLORIDE INJ 30 MEQ in DEXTROSE 5% NACL 0.45% 1,000 ML IV SCH (15:06)
[2017-12-28] MEDS: POTASSIUM CHLORIDE RIDER 20 MEQ in PREMIX 1 EACH IV PRN (15:06)
[2017-12-28] MEDS: ENOXAPARIN 30 MG/0.3 ML SYRINGE SUBCUT SCH (15:25)
[2017-12-28] MEDS: TAMSULOSIN 0.4 MG CAPSULE PO SCH (20:12)
[2017-12-28] MEDS: DIPHENOXYLATE/ATROPINE 2.5-0.025 MG TABLET PO SCH (20:12)
[2017-12-29] MEDS: POTASSIUM CHLORIDE RIDER 20 MEQ in PREMIX 1 EACH IV PRN (02:08)
[2017-12-29] MEDS: POTASSIUM CHLORIDE INJ 30 MEQ in DEXTROSE 5% NACL 0.45% 1,000 ML IV SCH ×2 (04:25→18:34)
[2017-12-29 04:59] LABS: Basophils # 0.1 10*3/uL (0.0-0.2); Basophils % 1.1 % (0.0-0.8); Eosinophils # 0.3 10*3/uL (0.0-0.87); Eosinophils % 6.1 % (0.00-10.9); Hemoglobin 7.9 GM/DL (12.0-16.0); Immature Granulocytes % 0.6 %; Immature Granulocytes Absolute 0.03 #; Lymphocytes # 1.2 10*3/uL (1.4-4.0); Lymphocytes % 21.8 % (21.3-54.2); Mean Corpuscular HGB Conc 32.9 GM/DL (32-36); Mean Corpuscular Hemoglobin 29 PG (27-34); Mean Corpuscular Volume 89.2 FL (87-102); Mean Platelet Volume 9.2 FL (9.6-12.0); Monocytes # 0.6 10*3/uL (0.11-0.8); Monocytes % 12.1 % (1.7-12.7); NRBC # 0.19 10*3/uL; Neutrophils # 3.1 10*3/uL (1.4-7.4); Neutrophils % 58.3 % (38.7-73.9); Platelet Count 254 T/CUMM (130-400); Red Blood Count 2.69 MC/CUMM (3.8-5.5); Red Cell Distribution Width 16.8 % (9.3-17.3); White Blood Count 5.3 T/CUMM (4-12)
[2017-12-29 05:28] LABS: Albumin 2.2 G/DL (3.4-5.0); Calcium 7.2 MG/DL (8.5-10.1); Osmolality,Calculated 282.7 MOS/KG (273-304); Potassium 4.5 MMOL/L (3.5-5.1)
[2017-12-29] MEDS: ceFAZolin 1,000 MG VIAL IV SCH (08:40)
[2017-12-29] MEDS: SERTRALINE 25 MG TABLET PO SCH (08:40)
[2017-12-29] MEDS: CHOLESTYRAMINE 4 GM PACK PO SCH ×2 (08:40→20:59)
[2017-12-29] MEDS: PANTOPRAZOLE 40 MG TABLET PO SCH (08:41)
[2017-12-29] MEDS: POTASSIUM CHLORIDE 20 MEQ TABLET PO SCH (08:41)
[2017-12-29] MEDS: DIPHENOXYLATE/ATROPINE 2.5-0.025 MG TABLET PO SCH ×4 (08:41→20:58)
[2017-12-29] MEDS: ASPIRIN EC 81 MG TABLET PO SCH (08:41)
[2017-12-29] MEDS: ONDANSETRON 4 MG/2 ML VIAL IV PRN (12:56)
[2017-12-29] MEDS: SODIUM BICARB INJ 50 MEQ in DEXTROSE 5% NACL 0.45% 1,000 ML IV SCH ×2 (13:04→23:48)
[2017-12-29] MEDS: LEVOFLOXACIN 250 MG TABLET PO SCH (13:11)
[2017-12-29] MEDS: ENOXAPARIN 30 MG/0.3 ML SYRINGE SUBCUT SCH (13:11)
[2017-12-29] MEDS: WHEAT DEXTRIN POWDER 244 GM BOTTLE PO SCH ×2 (18:32→20:58)
[2017-12-29] MEDS: TAMSULOSIN 0.4 MG CAPSULE PO SCH (20:58)
[2017-12-30 03:28] LABS: Basophils # 0.1 10*3/uL (0.0-0.2); Basophils % 0.8 % (0.0-0.8); Eosinophils # 0.4 10*3/uL (0.0-0.87); Hematocrit 25.1 VOL% (35.7-47.0); Hemoglobin 7.9 GM/DL (12.0-16.0); Immature Granulocytes % 0.5 %; Immature Granulocytes Absolute 0.03 #; Lymphocytes # 1.3 10*3/uL (1.4-4.0); Lymphocytes % 20.7 % (21.3-54.2); Mean Corpuscular HGB Conc 31.5 GM/DL (32-36); Mean Corpuscular Hemoglobin 29 PG (27-34); Mean Corpuscular Volume 93.3 FL (87-102); Mean Platelet Volume 9.7 FL (9.6-12.0); Monocytes # 0.8 10*3/uL (0.11-0.8); Monocytes % 11.9 % (1.7-12.7); NRBC # 0.11 10*3/uL; Neutrophils # 3.9 10*3/uL (1.4-7.4); Neutrophils % 60.1 % (38.7-73.9); Platelet Count 283 T/CUMM (130-400); Red Blood Count 2.69 MC/CUMM (3.8-5.5); Red Cell Distribution Width 17.2 % (9.3-17.3); White Blood Count 6.5 T/CUMM (4-12)
[2017-12-30 04:00] LABS: Albumin 2.1 G/DL (3.4-5.0); Calcium 7.3 MG/DL (8.5-10.1); Osmolality,Calculated 288.1 MOS/KG (273-304); Potassium 3.9 MMOL/L (3.5-5.1)
[2017-12-30] MEDS: POTASSIUM CHLORIDE RIDER 20 MEQ in PREMIX 1 EACH IV PRN (06:47)
[2017-12-30] MEDS: PANTOPRAZOLE 40 MG TABLET PO SCH (08:05)
[2017-12-30] MEDS: DIPHENOXYLATE/ATROPINE 2.5-0.025 MG TABLET PO SCH ×3 (08:05→20:44)
[2017-12-30] MEDS: SERTRALINE 25 MG TABLET PO SCH (08:05)
[2017-12-30] MEDS: CHOLESTYRAMINE 4 GM PACK PO SCH ×2 (08:05→20:44)
[2017-12-30] MEDS: ceFAZolin 1,000 MG VIAL IV SCH ×2 (08:06→16:04)
[2017-12-30] MEDS: LEVOFLOXACIN 250 MG TABLET PO SCH (08:06)
[2017-12-30] MEDS: ASPIRIN EC 81 MG TABLET PO SCH (08:06)
[2017-12-30] MEDS: SODIUM BICARB INJ 50 MEQ in DEXTROSE 5% NACL 0.45% 1,000 ML IV SCH (08:06)
[2017-12-30] MEDS: WHEAT DEXTRIN POWDER 244 GM BOTTLE PO SCH ×3 (08:47→20:51)
[2017-12-30] MEDS: ENOXAPARIN 30 MG/0.3 ML SYRINGE SUBCUT SCH (14:06)
[2017-12-30] MEDS: SODIUM BICARB INJ 75 MEQ in DEXTROSE 5% 1,000 ML IV SCH (20:42)
[2017-12-30] MEDS: TAMSULOSIN 0.4 MG CAPSULE PO SCH (20:44)
[2017-12-31] MEDS: ceFAZolin 1,000 MG VIAL IV SCH ×3 (00:34→16:03)
[2017-12-31 05:33] LABS: Basophils # 0.1 10*3/uL (0.0-0.2); Basophils % 0.5 % (0.0-0.8); Eosinophils # 0.5 10*3/uL (0.0-0.87); Eosinophils % 5.7 % (0.00-10.9); Immature Granulocytes % 0.4 %; Immature Granulocytes Absolute 0.04 #; Lymphocytes # 1.7 10*3/uL (1.4-4.0); Lymphocytes % 18.5 % (21.3-54.2); Mean Corpuscular HGB Conc 30.8 GM/DL (32-36); Mean Corpuscular Hemoglobin 29 PG (27-34); Mean Corpuscular Volume 94.2 FL (87-102); Monocytes % 10.6 % (1.7-12.7); NRBC # 0.11 10*3/uL; Neutrophils # 5.9 10*3/uL (1.4-7.4); Neutrophils % 64.3 % (38.7-73.9); Platelet Count 290 T/CUMM (130-400); Red Blood Count 2.76 MC/CUMM (3.8-5.5); Red Cell Distribution Width 17.5 % (9.3-17.3); White Blood Count 9.2 T/CUMM (4-12)
[2017-12-31 06:06] LABS: Albumin 2.2 G/DL (3.4-5.0); Calcium 7.9 MG/DL (8.5-10.1); Osmolality,Calculated 280.4 MOS/KG (273-304); Potassium 4.6 MMOL/L (3.5-5.1)
[2017-12-31] MEDS: DIPHENOXYLATE/ATROPINE 2.5-0.025 MG TABLET PO SCH ×4 (06:40→21:53)
[2017-12-31] MEDS ORDERED: SODIUM PHOSPHATE INJ 30 MMOL in SODIUM CHLORIDE 0.9% 250 ML IV ONE (07:07)
[2017-12-31] MEDS: SODIUM BICARB INJ 75 MEQ in DEXTROSE 5% 1,000 ML IV SCH ×2 (07:11→21:54)
[2017-12-31] MEDS: CHOLESTYRAMINE 4 GM PACK PO SCH ×2 (08:12→21:53)
[2017-12-31] MEDS: SERTRALINE 25 MG TABLET PO SCH (08:13)
[2017-12-31] MEDS: WHEAT DEXTRIN POWDER 244 GM BOTTLE PO SCH ×2 (08:13→21:53)
[2017-12-31] MEDS: PANTOPRAZOLE 40 MG TABLET PO SCH (08:13)
[2017-12-31] MEDS: ASPIRIN EC 81 MG TABLET PO SCH (08:13)
[2017-12-31] MEDS: LEVOFLOXACIN 250 MG TABLET PO SCH (08:13)
[2017-12-31] MEDS: ENOXAPARIN 30 MG/0.3 ML SYRINGE SUBCUT SCH (13:16)
[2017-12-31] MEDS: TAMSULOSIN 0.4 MG CAPSULE PO SCH (21:53)
[2018-01-01] MEDS: ceFAZolin 1,000 MG VIAL IV SCH ×3 (00:37→16:04)
[2018-01-01] MEDS: DIPHENOXYLATE/ATROPINE 2.5-0.025 MG TABLET PO SCH ×4 (06:35→22:36)
[2018-01-01] MEDS: SODIUM BICARB INJ 75 MEQ in DEXTROSE 5% 1,000 ML IV SCH ×2 (06:45→22:37)
[2018-01-01 07:49] LABS: Basophils # 0.1 10*3/uL (0.0-0.2); Basophils % 0.6 % (0.0-0.8); Eosinophils # 0.7 10*3/uL (0.0-0.87); Eosinophils % 7.5 % (0.00-10.9); Hematocrit 24.3 VOL% (35.7-47.0); Hemoglobin 7.5 GM/DL (12.0-16.0); Immature Granulocytes % 0.5 %; Immature Granulocytes Absolute 0.04 #; Lymphocytes # 1.5 10*3/uL (1.4-4.0); Lymphocytes % 17.6 % (21.3-54.2); Mean Corpuscular HGB Conc 30.9 GM/DL (32-36); Mean Corpuscular Hemoglobin 29 PG (27-34); Mean Corpuscular Volume 93.5 FL (87-102); Mean Platelet Volume 9.7 FL (9.6-12.0); Monocytes # 0.9 10*3/uL (0.11-0.8); Monocytes % 10.5 % (1.7-12.7); NRBC # 0.06 10*3/uL; Neutrophils # 5.5 10*3/uL (1.4-7.4); Neutrophils % 63.3 % (38.7-73.9); Platelet Count 280 T/CUMM (130-400); Red Cell Distribution Width 17.8 % (9.3-17.3); White Blood Count 8.7 T/CUMM (4-12)
[2018-01-01] MEDS: SERTRALINE 25 MG TABLET PO SCH (08:00)
[2018-01-01] MEDS: LEVOFLOXACIN 250 MG TABLET PO SCH (08:00)
[2018-01-01] MEDS: PANTOPRAZOLE 40 MG TABLET PO SCH (08:00)
[2018-01-01] MEDS: ASPIRIN EC 81 MG TABLET PO SCH (08:00)
[2018-01-01] MEDS: CHOLESTYRAMINE 4 GM PACK PO SCH ×2 (08:00→22:36)
[2018-01-01] MEDS: WHEAT DEXTRIN POWDER 244 GM BOTTLE PO SCH ×2 (08:01→22:37)
[2018-01-01 08:16] LABS: Albumin 1.9 G/DL (3.4-5.0); Bilirubin,Total 0.5 MG/DL (0.2-1.0); Calcium 7.7 MG/DL (8.5-10.1); Osmolality,Calculated 279.3 MOS/KG (273-304); Potassium 4.3 MMOL/L (3.5-5.1); Total Protein 4.8 G/DL (6.4-8.3)
[2018-01-01] MEDS ORDERED: FUROSEMIDE 20 MG/2 ML VIAL IV PRN (08:38)
[2018-01-01] MEDS ORDERED: SODIUM CHLORIDE 0.9% 1,000 ML IV PRN (08:38)
[2018-01-01] MEDS ORDERED: diphenhydrAMINE 50 MG/1 ML VIAL IV PRN (08:38)
[2018-01-01] MEDS: ENOXAPARIN 30 MG/0.3 ML SYRINGE SUBCUT SCH (13:10)
[2018-01-01 22:06] LABS: Hematocrit 36.1 VOL% (35.7-47.0); Hemoglobin 11.5 GM/DL (12.0-16.0)
[2018-01-01] MEDS: TAMSULOSIN 0.4 MG CAPSULE PO SCH (22:36)
[2018-01-02] MEDS: ceFAZolin 1,000 MG VIAL IV SCH ×2 (00:28→09:19)
[2018-01-02 05:36] LABS: Basophils # 0.1 10*3/uL (0.0-0.2); Basophils % 0.6 % (0.0-0.8); Eosinophils # 0.7 10*3/uL (0.0-0.87); Eosinophils % 6.8 % (0.00-10.9); Hematocrit 36.3 VOL% (35.7-47.0); Hemoglobin 11.6 GM/DL (12.0-16.0); Immature Granulocytes % 0.3 %; Immature Granulocytes Absolute 0.03 #; Lymphocytes # 1.3 10*3/uL (1.4-4.0); Lymphocytes % 13.9 % (21.3-54.2); Mean Corpuscular Hemoglobin 29 PG (27-34); Mean Corpuscular Volume 91.4 FL (87-102); Mean Platelet Volume 9.7 FL (9.6-12.0); Monocytes # 0.8 10*3/uL (0.11-0.8); Monocytes % 8.7 % (1.7-12.7); Neutrophils # 6.7 10*3/uL (1.4-7.4); Neutrophils % 69.7 % (38.7-73.9); Platelet Count 263 T/CUMM (130-400); Red Blood Count 3.97 MC/CUMM (3.8-5.5); Red Cell Distribution Width 17.5 % (9.3-17.3); White Blood Count 9.6 T/CUMM (4-12)
[2018-01-02 05:54] LABS: Alanine Aminotransferase 11 U/L (13-56); Alkaline Phosphatase 70 U/L (45-117); Aspartate Amino Transferase 18 U/L (0-37); Bilirubin,Total < 0.39 MG/DL (0.2-1.0); Blood Urea Nitrogen 17 MG/DL (7-18); Calcium 8.1 MG/DL (8.5-10.1); Glucose 83 MG/DL (74-106); Osmolality,Calculated 279.4 MOS/KG (273-304); Potassium 4.3 MMOL/L (3.5-5.1); Sodium 140 MMOL/L (136-145)
[2018-01-02] MEDS: DIPHENOXYLATE/ATROPINE 2.5-0.025 MG TABLET PO SCH ×4 (07:59→20:51)
[2018-01-02] MEDS: PANTOPRAZOLE 40 MG TABLET PO SCH (08:04)
[2018-01-02] MEDS: ASPIRIN EC 81 MG TABLET PO SCH (08:04)
[2018-01-02] MEDS: LEVOFLOXACIN 250 MG TABLET PO SCH (08:04)
[2018-01-02] MEDS: SERTRALINE 25 MG TABLET PO SCH (08:05)
[2018-01-02] MEDS: CHOLESTYRAMINE 4 GM PACK PO SCH ×2 (09:11→20:51)
[2018-01-02] MEDS: WHEAT DEXTRIN POWDER 244 GM BOTTLE PO SCH ×2 (09:15→20:50)
[2018-01-02] MEDS ORDERED: AMPICILLIN/SULBACTAM 3,000 MG in SODIUM CHLORIDE 0.9% 100 ML IV SCH (13:00)
[2018-01-02] MEDS: ENOXAPARIN 30 MG/0.3 ML SYRINGE SUBCUT SCH (14:48)
[2018-01-02] MEDS: VANCOMYCIN INJ 750 MG in SODIUM CHLORIDE 0.9% 250 ML IV SCH (15:32)
[2018-01-02] MEDS: SODIUM BICARB INJ 75 MEQ in DEXTROSE 5% 1,000 ML IV SCH ×2 (19:07→20:55)
[2018-01-02] MEDS: TAMSULOSIN 0.4 MG CAPSULE PO SCH (20:51)
[2018-01-02] MEDS: MAGNESIUM SULF RIDER 2 GM in PREMIX 1 EACH IV PRN (20:54)
[2018-01-03 07:17] LABS: Basophils # 0.1 10*3/uL (0.0-0.2); Basophils % 0.7 % (0.0-0.8); Eosinophils # 0.7 10*3/uL (0.0-0.87); Eosinophils % 7.2 % (0.00-10.9); Hemoglobin 12.8 GM/DL (12.0-16.0); Immature Granulocytes % 0.3 %; Immature Granulocytes Absolute 0.03 #; Lymphocytes # 1.3 10*3/uL (1.4-4.0); Lymphocytes % 12.6 % (21.3-54.2); Mean Corpuscular HGB Conc 31.2 GM/DL (32-36); Mean Corpuscular Hemoglobin 30 PG (27-34); Mean Corpuscular Volume 94.5 FL (87-102); Mean Platelet Volume 9.8 FL (9.6-12.0); Monocytes % 9.3 % (1.7-12.7); Neutrophils # 7.2 10*3/uL (1.4-7.4); Neutrophils % 69.9 % (38.7-73.9); Platelet Count 254 T/CUMM (130-400); Red Blood Count 4.34 MC/CUMM (3.8-5.5); Red Cell Distribution Width 17.5 % (9.3-17.3); White Blood Count 10.2 T/CUMM (4-12)
[2018-01-03 07:42] LABS: Alanine Aminotransferase 9 U/L (13-56); Albumin 2.1 G/DL (3.4-5.0); Alkaline Phosphatase 86 U/L (45-117); Aspartate Amino Transferase 23 U/L (0-37); Bilirubin,Total < 0.39 MG/DL (0.2-1.0); Blood Urea Nitrogen 14 MG/DL (7-18); Glucose 87 MG/DL (74-106); Potassium 4.8 MMOL/L (3.5-5.1); Sodium 143 MMOL/L (136-145); Total Protein 5.2 G/DL (6.4-8.3)
[2018-01-03] MEDS: DIPHENOXYLATE/ATROPINE 2.5-0.025 MG TABLET PO SCH ×4 (07:43→20:00)
[2018-01-03] MEDS: SODIUM BICARB INJ 75 MEQ in DEXTROSE 5% 1,000 ML IV SCH ×2 (07:44→20:03)
[2018-01-03] MEDS: SERTRALINE 25 MG TABLET PO SCH (09:46)
[2018-01-03] MEDS: LEVOFLOXACIN 250 MG TABLET PO SCH (09:46)
[2018-01-03] MEDS: ASPIRIN EC 81 MG TABLET PO SCH (09:46)
[2018-01-03] MEDS: PANTOPRAZOLE 40 MG TABLET PO SCH (09:47)
[2018-01-03] MEDS: WHEAT DEXTRIN POWDER 244 GM BOTTLE PO SCH ×2 (09:47→20:01)
[2018-01-03] MEDS: CHOLESTYRAMINE 4 GM PACK PO SCH ×2 (09:47→20:01)
[2018-01-03] MEDS: VANCOMYCIN INJ 750 MG in SODIUM CHLORIDE 0.9% 250 ML IV SCH (16:17)
[2018-01-03] MEDS: ENOXAPARIN 30 MG/0.3 ML SYRINGE SUBCUT SCH (16:17)
[2018-01-03] MEDS: TAMSULOSIN 0.4 MG CAPSULE PO SCH (20:00)
[2018-01-04] MEDS: SODIUM BICARB INJ 75 MEQ in DEXTROSE 5% 1,000 ML IV SCH ×2 (06:29→20:46)
[2018-01-04 06:33] LABS: Basophils # 0.1 10*3/uL (0.0-0.2); Basophils % 0.6 % (0.0-0.8); Eosinophils # 0.6 10*3/uL (0.0-0.87); Eosinophils % 7.1 % (0.00-10.9); Hematocrit 35.8 VOL% (35.7-47.0); Hemoglobin 11.2 GM/DL (12.0-16.0); Immature Granulocytes % 0.3 %; Immature Granulocytes Absolute 0.03 #; Lymphocytes # 1.3 10*3/uL (1.4-4.0); Lymphocytes % 14.7 % (21.3-54.2); Mean Corpuscular HGB Conc 31.3 GM/DL (32-36); Mean Corpuscular Hemoglobin 30 PG (27-34); Mean Corpuscular Volume 94.7 FL (87-102); Mean Platelet Volume 9.2 FL (9.6-12.0); Monocytes # 0.9 10*3/uL (0.11-0.8); Monocytes % 10.8 % (1.7-12.7); Neutrophils # 5.8 10*3/uL (1.4-7.4); Neutrophils % 66.5 % (38.7-73.9); Platelet Count 245 T/CUMM (130-400); Red Blood Count 3.78 MC/CUMM (3.8-5.5); Red Cell Distribution Width 17.2 % (9.3-17.3); White Blood Count 8.7 T/CUMM (4-12)
[2018-01-04 07:12] LABS: Alanine Aminotransferase < 9 U/L (13-56); Albumin 1.9 G/DL (3.4-5.0); Alkaline Phosphatase 69 U/L (45-117); Aspartate Amino Transferase 14 U/L (0-37); Blood Urea Nitrogen 17 MG/DL (7-18); Calcium 8.1 MG/DL (8.5-10.1); Glucose 89 MG/DL (74-106); Osmolality,Calculated 279.4 MOS/KG (273-304); Potassium 4.4 MMOL/L (3.5-5.1); Sodium 140 MMOL/L (136-145); Total Protein 5.1 G/DL (6.4-8.3)
[2018-01-04] MEDS: ASPIRIN EC 81 MG TABLET PO SCH (09:28)
[2018-01-04] MEDS: SERTRALINE 25 MG TABLET PO SCH (09:28)
[2018-01-04] MEDS: PANTOPRAZOLE 40 MG TABLET PO SCH (09:28)
[2018-01-04] MEDS: LEVOFLOXACIN 250 MG TABLET PO SCH (09:28)
[2018-01-04] MEDS: DIPHENOXYLATE/ATROPINE 2.5-0.025 MG TABLET PO SCH ×4 (09:28→20:47)
[2018-01-04] MEDS: WHEAT DEXTRIN POWDER 244 GM BOTTLE PO SCH ×2 (09:28→20:47)
[2018-01-04] MEDS: CHOLESTYRAMINE 4 GM PACK PO SCH ×2 (09:28→20:48)
[2018-01-04] MEDS: MAGNESIUM SULF RIDER 2 GM in PREMIX 1 EACH IV PRN (09:33)
[2018-01-04] MEDS: ENOXAPARIN 30 MG/0.3 ML SYRINGE SUBCUT SCH (14:40)
[2018-01-04] MEDS: VANCOMYCIN INJ 750 MG in SODIUM CHLORIDE 0.9% 250 ML IV SCH (17:01)
[2018-01-04] MEDS: TAMSULOSIN 0.4 MG CAPSULE PO SCH (20:47)
[2018-01-05] MEDS: SODIUM BICARB INJ 75 MEQ in DEXTROSE 5% 1,000 ML IV SCH (04:16)
[2018-01-05 06:45] LABS: Basophils % 0.4 % (0.0-0.8); Eosinophils # 0.5 10*3/uL (0.0-0.87); Eosinophils % 5.5 % (0.00-10.9); Hematocrit 35.2 VOL% (35.7-47.0); Hemoglobin 10.7 GM/DL (12.0-16.0); Immature Granulocytes % 0.4 %; Immature Granulocytes Absolute 0.04 #; Lymphocytes # 1.2 10*3/uL (1.4-4.0); Lymphocytes % 12.7 % (21.3-54.2); Mean Corpuscular HGB Conc 30.4 GM/DL (32-36); Mean Corpuscular Hemoglobin 29 PG (27-34); Mean Corpuscular Volume 95.1 FL (87-102); Mean Platelet Volume 9.3 FL (9.6-12.0); Monocytes # 0.9 10*3/uL (0.11-0.8); Monocytes % 9.9 % (1.7-12.7); Neutrophils # 6.8 10*3/uL (1.4-7.4); Neutrophils % 71.1 % (38.7-73.9); Platelet Count 268 T/CUMM (130-400); Red Cell Distribution Width 17.2 % (9.3-17.3); White Blood Count 9.5 T/CUMM (4-12)
[2018-01-05 07:05] LABS: Albumin 1.9 G/DL (3.4-5.0); Bilirubin,Total 0.5 MG/DL (0.2-1.0); Calcium 7.9 MG/DL (8.5-10.1); Osmolality,Calculated 282.1 MOS/KG (273-304); Potassium 4.9 MMOL/L (3.5-5.1); Total Protein 5.1 G/DL (6.4-8.3)
[2018-01-05] MEDS: DIPHENOXYLATE/ATROPINE 2.5-0.025 MG TABLET PO SCH ×2 (09:00→12:49)
[2018-01-05] MEDS: PANTOPRAZOLE 40 MG TABLET PO SCH (09:00)
[2018-01-05] MEDS: CHOLESTYRAMINE 4 GM PACK PO SCH (09:00)
[2018-01-05] MEDS: ASPIRIN EC 81 MG TABLET PO SCH (09:00)
[2018-01-05] MEDS: WHEAT DEXTRIN POWDER 244 GM BOTTLE PO SCH (09:00)
[2018-01-05] MEDS: SERTRALINE 25 MG TABLET PO SCH (09:00)
[2018-01-05] MEDS ORDERED: VANCOMYCIN INJ 750 MG in SODIUM CHLORIDE 0.9% 250 ML IV SCH (11:00)
[2018-01-05 13:02] VITALS: BP 156/99
[2018-01-05] MEDS ORDERED: VANCOMYCIN INJ 1,000 MG in SODIUM CHLORIDE 0.9% 250 ML IV SCH (14:00)
[2018-01-05] MEDS: ENOXAPARIN 30 MG/0.3 ML SYRINGE SUBCUT SCH (14:08)
[2018-01-14] MEDS ORDERED: ceFAZolin 1,000 MG in SYRINGE 1 EACH IV SCH (14:00)
== END 2018-01-05 14:00 | disposition left against medical advice (07) | DRG 682 ==
LOC: N.ED 09:44 → SUATTDRO 13:55 → N.EDINP 13:55 → N.5E 14:15
PROVIDERS: ADMIT Internal Medicine